=== PATIENT | female | born 1950 | race Caucasian/White ===

== ENCOUNTER 2024-01-08 11:04 | Inpatient (IN) | payer MEDICARE, SELFPAY ==
[2024-01-08] VITALS (41 sets, daily range): BP systolic 105–164; BP diastolic 31–83; PULSE 71–92; TEMP 36.6–37.2; O2SAT 84–97; BMI 45.7; BMI 46.9
--- NOTE | 2024-01-08 11:03 | ECG_ITS ---
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
--- NOTE | 2024-01-08 11:03 | XR_ITS ---
The [address] [address] Patient Name: DAVID GUZMÁN MRN: [id number] date: 1950 Sex: F Assigned Patient Location: ED.MAIN Current Patient Location: ER Accession/Order Number: [id number] Exam Date: 01/08/2024 11:30 Report Date: 01/08/2024 12:02 At the request of: ALCIDES DAVIES Procedure: XR chest 1V EXAMINATION: XR chest 1V HISTORY: sob COMPARISON: XR chest 12/16/2015 FINDINGS: LUNGS: No significant pulmonary parenchymal abnormalities. VASCULATURE: No increased pulmonary vasculature. PLEURA: No pneumothorax, effusion, or pleural thickening. CARDIAC: Cardiomegaly. MEDIASTINUM: No visible mass or adenopathy. BONES: No fracture or visible bone lesion. OTHER: Negative. XR/XR chest 1V IMPRESSION: 1. Cardiomegaly. 2. No acute cardiopulmonary process. Electronically authenticated by: PATTY PANDA Date: 01/08/2024 12:02
--- NOTE | 2024-01-08 11:28 | CT_ITS ---
The [address] [address] Patient Name: DAVID GUZMÁN MRN: [id number] date: 1950 Sex: F Assigned Patient Location: ED.MAIN Current Patient Location: ED.MAIN Accession/Order Number: [id number] Exam Date: 01/08/2024 11:30 Report Date: 01/08/2024 11:57 At the request of: ALCIDES DAVIES Procedure: CT head/brain wo con EXAM: CT head/brain wo con HISTORY: confusion COMPARISON: CT head 03/09/2016. TECHNIQUE: Axial noncontrast CT imaging of the head was performed with coronal and sagittal reformats. This CT exam was performed using one or more of the following dose reduction techniques: Automated exposure control, adjustment of the MA and/or kV according to patient size, or use of iterative reconstruction technique. FINDINGS: Calvarium/skull base: No evidence of acute fracture or destructive lesion. Partial opacification of the left mastoid air cells. Paranasal sinuses: No air fluid levels. Brain: No acute intracranial hemorrhage. No acute large vascular territory infarct. Remote lacunar infarct versus prominent perivascular space involving the inferior right lentiform nucleus stable from 2016. Remote lacunar infarct involving the right caudate body. Remote networking administrator infarcts involving the left cerebellum is stable from prior. Moderate symmetric hypoattenuation is present involving the supratentorial white matter which most commonly relates to sequela small vessel disease. No mass lesion or mass effect. No hydrocephalus. Intracranial atherosclerosis. CT/CT head/brain wo con IMPRESSION: 1. No acute large vascular territory infarct or acute intracranial hemorrhage. If there is clinical concern for recent ischemia recommend MRI brain for further evaluation. 2. Chronic changes described above. Electronically authenticated by: OCTAVIO KEVIN Date: 01/08/2024 11:57
[2024-01-08 11:29] LABS: Basophils Absolute Auto 0.1 10^3/uL (0.0-0.1); Basophils Percent Auto 0.9 % (0.2-2.0); Eosinophils Absolute Auto 0.1 10^3/uL (0.0-0.7); Eosinophils Percent Auto 1.4 % (0.9-7.0); Hematocrit 25.8 % (36.0-48.0); Hemoglobin 7.4 g/dL (12.0-16.0); Immature Granulocytes Abs Auto 0.04 10^3/uL (0.00-0.03); Immature Granulocytes Pct Auto 0.5 % (0.0-0.5); Lymphocytes Absolute Auto 1.3 10^3/uL (1.2-3.8); Lymphocytes Percent Auto 16.5 % (20.5-60.0); Mean Corpuscular HGB Conc 28.7 g/dL (29.9-35.2); Mean Corpuscular Hemoglobin 21.1 pg (26.7-34.0); Mean Corpuscular Volume 73.7 fL (81.0-99.0); Mean Platelet Volume 9.4 fL (9.5-13.5); Monocytes Absolute Auto 0.6 10^3/uL (0.3-0.8); Monocytes Percent Auto 7.7 % (1.7-12.0); Neutrophils Absolute Auto 5.9 10^3/uL (1.4-6.5); Platelet Count 386 10^3/uL (150-450); Red Cell Distribution Width 16.6 % (11.0-15.0)
[2024-01-08 11:46] LABS: Alanine Aminotransferase 24 U/L (14-59); Albumin Globulin Ratio 0.8; Albumin Level 3.1 g/dL (3.4-5.0); Alkaline Phosphatase 170 U/L (46-116); Anion Gap 13.6; Aspartate Amino Transferase 14 U/L (15-37); BUN Creatinine Ratio 10.8; Bilirubin Total 0.7 mg/dL (0.2-1.0); Calcium 8.9 mg/dL (8.5-10.1); Carbon Dioxide 27.4 mmol/L (21.0-32.0); Chloride 104 mmol/L (98-107); Estimated GFR (African America >60 (>=60 mL/min/1.73m^2); Estimated GFR (Non-African Ame >60 (>=60 mL/min/1.73m^2); Globulin 3.7 g/dL; Glucose 222 mg/dL (74-106); Sodium 141 mmol/L (136-145); Total Protein 6.8 g/dL (6.4-8.2)
[2024-01-08 11:47] LABS: INR 1.02; Prothrombin Time 10.8 sec (9.0-11.6)
[2024-01-08 11:53] LABS: Lactate/Lactic Acid 2.1 mmol/L (0.4-2.0); Troponin I High Sensitivity 5.8 pg/mL (4.0-51.3)
--- NOTE | 2024-01-08 11:59 | PC.NURSE ---
PT REFUSING COVID TEST
[2024-01-08 12:05] LABS: Bilirubin Urine NEGATIVE (NEGATIVE); Blood Urine NEGATIVE (NEGATIVE); Clarity Urine CLEAR (CLEAR); Color Urine LT. YELLOW (YELLOW); Glucose Urine UA >=1000 mg/dL (NEGATIVE); Ketones Urine NEGATIVE (NEGATIVE); Leukocyte Esterase Urine NEGATIVE (NEGATIVE); Nitrite Urine NEGATIVE (NEGATIVE); Protein Urine NEGATIVE (NEG/TRACE); Specific Gravity Urine 1.025 (1.005-1.025); pH Urine 5.5 (5.0-9.0)
[2024-01-08 12:07] LABS: Urine Microscopic Indicated NO
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
[2024-01-08 13:40] LABS: Internal Control Within Normal Limits; Occult Blood Positive
--- NOTE | 2024-01-08 14:34 | SWNOTE1 ---
SW had an order for skilled nurse. SW went to speak with pt, but nurse was completing admission assessment. SW to stop back later today or tomorrow morning.
[2024-01-08 14:50] LABS: Lactate/Lactic Acid 1.3 mmol/L (0.4-2.0)
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
--- NOTE | 2024-01-08 16:05 | SWNOTE1 ---
Important Message from Medicare reviewed and discussed with patient's Healthcare POAArmida. Armida verbalized understanding and signed the form. Original given to Armida and copy placed in patient?s chart.
[2024-01-08] MEDS: FUROSEMIDE 40 MG/4 ML VIAL IVP (16:51)
[2024-01-08] MEDS: PANTOPRAZOLE SODIUM 40 MG VIAL IV (18:45)
[2024-01-08 23:15] LABS: Hematocrit 30.5 % (36.0-48.0); Hemoglobin 9.3 g/dL (12.0-16.0)
[2024-01-09] VITALS (10 sets, daily range): BP systolic 142–159; BP diastolic 68–84; PULSE 61–90; TEMP 36.5–36.8; O2SAT 92–98
[2024-01-09] MEDS: PANTOPRAZOLE SODIUM 40 MG VIAL IV (05:16)
[2024-01-09 05:51] LABS: Basophils Absolute Auto 0.1 10^3/uL (0.0-0.1); Basophils Percent Auto 1.1 % (0.2-2.0); Eosinophils Absolute Auto 0.2 10^3/uL (0.0-0.7); Eosinophils Percent Auto 2.1 % (0.9-7.0); Hemoglobin 9.1 g/dL (12.0-16.0); Immature Granulocytes Abs Auto 0.05 10^3/uL (0.00-0.03); Immature Granulocytes Pct Auto 0.7 % (0.0-0.5); Lymphocytes Absolute Auto 1.3 10^3/uL (1.2-3.8); Lymphocytes Percent Auto 17.3 % (20.5-60.0); Mean Corpuscular HGB Conc 30.3 g/dL (29.9-35.2); Mean Corpuscular Hemoglobin 22.4 pg (26.7-34.0); Mean Corpuscular Volume 73.9 fL (81.0-99.0); Mean Platelet Volume 9.5 fL (9.5-13.5); Monocytes Absolute Auto 0.6 10^3/uL (0.3-0.8); Monocytes Percent Auto 7.4 % (1.7-12.0); Neutrophils Absolute Auto 5.4 10^3/uL (1.4-6.5); Neutrophils Percent Auto 71.4 % (43.0-75.0); Platelet Count 335 10^3/uL (150-450); Red Blood Count 4.06 10^6/uL (4.20-5.40); Red Cell Distribution Width 17.5 % (11.0-15.0); White Blood Count 7.6 10^3/uL (4.0-11.0)
[2024-01-09 06:08] LABS: Alanine Aminotransferase 21 U/L (14-59); Albumin Globulin Ratio 0.9; Alkaline Phosphatase 160 U/L (46-116); Anion Gap 14.5; Aspartate Amino Transferase 16 U/L (15-37); BUN Creatinine Ratio 7.7; Bilirubin Total 1.9 mg/dL (0.2-1.0); Calcium 8.6 mg/dL (8.5-10.1); Carbon Dioxide 27.2 mmol/L (21.0-32.0); Chloride 105 mmol/L (98-107); Estimated GFR (African America >60 (>=60 mL/min/1.73m^2); Estimated GFR (Non-African Ame >60 (>=60 mL/min/1.73m^2); Globulin 3.4 g/dL; Glucose 164 mg/dL (74-106); Potassium 3.7 mmol/L (3.5-5.1); Sodium 143 mmol/L (136-145); Total Protein 6.4 g/dL (6.4-8.2)
--- NOTE | 2024-01-09 07:00 | CA_ITS ---
Patient Name: DAVID GUZMÁN MR#: [id number] : 1950 Exam Date: 01/09/2024 Ordering Doctor: SHAIKH Cristina PARKER . ECHOCARDIOGRAM REPORT PROCEDURE: CA ECHO DOPPLER COMPLETE INDICATIONS: SOB/CHF COMPARISON: None. DESCRIPTION: COMPLETE ECHOCARDIOGRAM Real-time transthoracic echocardiography with 2D, M-mode, spectral and color flow Doppler performed. QUALITY: Technical quality was good. LEFT VENTRICLE: Normal chamber size. Mild left ventricular hypertrophy. LV EF: Global left ventricular systolic function is hyperdynamic; visually estimated ejection fraction is 65 to 70%. No significant wall motion abnormalities. DIASTOLIC: Normal diastolic function. ATRIAL SEPTUM: Inadequately seen. LEFT ATRIUM: Mild dilatation. RIGHT ATRIUM: Normal chamber size. RIGHT VENTRICLE: Normal chamber size. Normal right ventricular systolic function. TRICUSPID VALVE: Normal mobility and thickness. Trivial regurgitation. Mild pulmonary hypertension. RVSP 37mmHg MITRAL VALVE: Normal mobility and thickness. No evidence of mitral valve stenosis. Mild mitral annular calcification. Trivial mitral regurgitation. AORTIC VALVE: Normal trileaflet appearance. Thickened aortic valve. Normal leaflet mobility. No evidence of aortic valve stenosis. Trivial aortic regurgitation. AORTIC ROOT: Normal diameter and appearance. The ascending aorta is mildly enlarged and measures 3.9 cm. PULMONIC VALVE: Normal thickness and mobility. No stenosis. Trivial regurgitation. PERICARDIUM: Anterior free space; trivial effusion versus fat pad. IVC: Not well visualized. CONCLUSION: 1. Global left ventricular systolic function is hyperdynamic; visually estimated ejection fraction is 65 to 70% 2. Normal right ventricular size and systolic function 3. Normal diastolic function 4. Mild left ventricular hypertrophy 5. The left atrium is mildly dilated 6. Mildly elevated right ventricular systolic pressure; RVSP 37 mmHg 7. No significant valvular abnormalities 8. The ascending aorta is mildly enlarged 9. Anterior free space; trivial effusion versus fat pad Adult Echocardiography Procedure Report Left Ventricle LVEDD (3.7 - 5.6 cm): 4.37 cm LVESD (2.2 - 4.0 cm): 3.00 cm LVIVS thickness (0.6 - 1.2 cm): 1.2 cm LVPW thickness (0.5 - 1.0 cm): 1.10 cm e': 0.11 m/s E - e': 8.90 LVOT Max Gradient: 3.80 mm[Hg] LVOT Area (cm2): 0.97 m/s Peak Velocity (LVOT): 0.97 m/s Mean Velocity (LVOT): 0.76 m/s LVOT Diameter 2.03 cm Left Ventricular Ejection Fraction: 72.15 % Left Atrium LA Volume Index (2D A2C): 38.17 ml/m2 Left Atrium Systolic Dimension: 2.91 cm Mitral Valve MV E to A Ratio: 0.77 Mitral Valve A-Wave Peak Velocity: 1.25 m/s Mitral Valve E-Wave Peak Velocity: 0.97 m/s Right Ventricle RV Internal Diastolic Dimension: 3.25 cm Aorta AO Root Diam: 2.66 cm Ascending Ao Diam: 3.86 cm Aortic Valve AoV Area (Peak Dionicio): 2.05 cm2, 2.05 cm2 AoV Area (VTI): 2.02 cm2, 2.02 cm2 Peak Velocity(Antegrade Flow): 1.55 m/s Peak Gradient(Antegrade Flow): 9.55 mm[Hg] Mean Velocity(Antegrade Flow): 1.11 m/s Mean Gradient(Antegrade Flow): 5.53 mm[Hg] Velocity Time Integral: 34.22 cm Tricuspid Valve Peak Velocity (Regurgitant Flow): 2.90 m/s, 2.59 m/s, 2.76 m/s Pulmonic Valve Mean Gradient: 3.35 mm[Hg], 3.49 mm[Hg] Mean Velocity: 0.85 m/s, 0.87 m/s Peak Velocity: 1.31 m/s Peak Gradient: 7.06 mm[Hg], 6.65 mm[Hg] Right Atrium Right Atrium Systolic Pressure: 36.95 ml, 36.95 ml Dictated by: Emir Aguilar M.D. on 01/09/2024 at 08:52 Approved by: Emir Aguilar M.D. on 01/09/2024 at 08:56
--- NOTE | 2024-01-09 07:35 | P.GSCN_ITS ---
History of Present Illness Consult details Consult date: 01/08/24 Narrative: 73 yo female presenting with increased SOB and fatigue with daily activities. Denies hematemesis, melanotic or bloody stools. Had c-scope long time ago and was told it was normal. No signifcant hx of colon cancer for self or family. Has personal Hx of breast cancer. Denies any hx of peptic ulcer disease or reflux symptoms. Doing well this am. Desires to go home. Discussed need for investigation of possible GI bleeding source. She understands and questions answered about EGD and colonoscopy. Review of Systems ROS Status of ROS 10 or more systems reviewed and unremark able except as noted in history and below [facility] Medical History (Updated 01/08/24 @ 20:24 by Shaikh Patt MD) H/O traumatic brain injury ?Z87.820 - Personal history of traumatic brain injury (ICD-10) Breast cancer ?C50.919 - Malignant neoplasm of unspecified site of unspecified female breast (ICD-10) Arthritis ?M19.90 - Unspecified osteoarthritis, unspecified site (ICD-10) Urinary tract infection ?N39.0 - Urinary tract infection, site not specified (ICD-10) Extremity edema ?R60.0 - Localized edema (ICD-10) Hypertension ?I10 - Essential (primary) hypertension (ICD-10) Congestive heart failure ?I50.9 - Heart failure, unspecified (ICD-10) Diabetes ?E11.9 - Type 2 diabetes mellitus without complications (ICD-10) Surgical History (Updated 01/08/24 @ 14:42 by Donna Hernandez) History of colonoscopy ?Z98.890 - Other specified postprocedural states (ICD-10) Family History (Updated 01/08/24 @ 14:45 by Donna Hernandez) Grandmother Family history of CHF (congestive heart failure) Family history of COPD (chronic obstructive pulmonary disease) Family history of cancer Family history of diabetes mellitus Family history of hypertension Family history of stroke Grandfather Family history of CHF (congestive heart failure) Family history of myocardial infarction Father Family history of cancer Social History (Updated 01/08/24 @ 14:47 by Donna Hernandez) Within the past year, how often did you have a drink containing alcohol: never Within the past year, how often did you have six or more drinks on one occasion: never Score interpretation: A score less than 3 is consistent with normal alcohol consumption. Smoking status: Former smoker Non-prescribed substance use: denies use Previous occupational history: [employer] Known occupational exposures/hazards: No Highest level of school completed/degree received: high school graduate Are you now , , , , never or living with a partner: In a typical week, how many times do you talk on the telephone with family, friends, or neighbors: 3 or more times per week How often do you get together with friends or relatives: 3 or more times per week How often do you attend gnosticist or anabaptist services: 1-3 times per year Do you belong to any clubs or organizations such as gnosticist groups unions, Inteligistics or athletic groups, or school groups: no Total score: 1 Score interpretation: A score of less than or equal to 1 indicates the most socially isolated. Little interest or pleasure in doing things: several days Feeling down, depressed, or hopeless: several days Feel stressed/tense/nervous/anxious/difficulty sleeping: not at all Do you think of yourself as: straight/heterosexual Gender Identity: female Meds Home Medications and Allergies Home Medications ?Medication ?Instructions ?Recorded ?Confirmed ?Type No Known Home Medications 01/08/24 01/08/24 History Allergies Allergy/AdvReac Type Severity Reaction Status Date / Time No Known Drug Allergies Allergy Verified 01/08/24 11:13 Exam Narrative Exam Narrative: General: awake, alert, no distress Head: normocephalic, atraumatic Neck: supple, no tracheal deviation Heart: RRR Lungs: equal chest rise and fall, non labored breathing Abdomen: soft, non tender, no rebound or guarding Extremities: no lesions, grossly normal Skin: intact, no cyanosis Psychological: no apparent speech or mood disorder, appropriate for encounter Constitutional Vital Signs, click to edit/add: Last Vital Signs Temp 98.1 F 01/09/24 04:00 Pulse 76 01/09/24 05:57 Resp 18 01/09/24 04:00 BP 159/79 H 01/09/24 04:00 Pulse Ox 92 L 01/09/24 04:00 O2 Del Method Room Air 01/09/24 04:00 Results Labs Labs: Abnormal lab results 01/08/24 01/08/24 01/08/24 Range/Units 11:21 11:50 12:40 RBC 3.50 L (4.20-5.40) 10^6/uL Hgb 7.4 L (12.0-16.0) g/dL Hct 25.8 L (36.0-48.0) % MCV 73.7 L (81.0-99.0) fL MCH 21.1 L (26.7-34.0) pg MCHC 28.7 L (29.9-35.2) g/dL RDW 16.6 H (11.0-15.0) % MPV 9.4 L (9.5-13.5) fL Lymph % (Auto) 16.5 L (20.5-60.0) % Abs Immat Gran (auto) 0.04 H (0.00-0.03) 10^3/uL Imm/Tot Granulo (auto) (0.0-0.5) % BUN (7.0-18.0) mg/dL Glucose 222 H (74-106) mg/dL Lactate 2.1 H (0.4-2.0) mmol/L Total Bilirubin (0.2-1.0) mg/dL AST 14 L (15-37) U/L Alkaline Phosphatase 170 H (46-116) U/L Albumin 3.1 L (3.4-5.0) g/dL Urine Glucose (UA) >=1000 A (NEGATIVE) mg/dL Stool Occult Blood Positive A Crossmatch 01/08/24 01/08/24 01/09/24 Range/Units 13:06 23:12 05:35 RBC 4.06 L (4.20-5.40) 10^6/uL Hgb 9.3 L 9.1 L (12.0-16.0) g/dL Hct 30.5 L 30.0 L (36.0-48.0) % MCV 73.9 L (81.0-99.0) fL MCH 22.4 L (26.7-34.0) pg MCHC (29.9-35.2) g/dL RDW 17.5 H (11.0-15.0) % MPV (9.5-13.5) fL Lymph % (Auto) 17.3 L (20.5-60.0) % Abs Immat Gran (auto) 0.05 H (0.00-0.03) 10^3/uL Imm/Tot Granulo (auto) 0.7 H (0.0-0.5) % BUN 6.0 L (7.0-18.0) mg/dL Glucose 164 H (74-106) mg/dL Lactate (0.4-2.0) mmol/L Total Bilirubin 1.9 H (0.2-1.0) mg/dL AST (15-37) U/L Alkaline Phosphatase 160 H (46-116) U/L Albumin 3.0 L (3.4-5.0) g/dL Urine Glucose (UA) (NEGATIVE) mg/dL Stool Occult Blood Crossmatch See Detail Diabetes panel 01/08/24 01/09/24 Range/Units 11:21 05:35 Sodium 141 143 (136-145) mmol/L Potassium 4.0 3.7 (3.5-5.1) mmol/L Chloride 104 105 (98-107) mmol/L Carbon Dioxide 27.4 27.2 (21.0-32.0) mmol/L BUN 9.0 6.0 L (7.0-18.0) mg/dL Creatinine 0.83 0.78 (0.55-1.02) mg/dL Glucose 222 H 164 H (74-106) mg/dL Calcium 8.9 8.6 (8.5-10.1) mg/dL AST 14 L 16 (15-37) U/L ALT 24 21 (14-59) U/L Alkaline Phosphatase 170 H 160 H (46-116) U/L Total Protein 6.8 6.4 (6.4-8.2) g/dL Albumin 3.1 L 3.0 L (3.4-5.0) g/dL Calcium panel 01/08/24 01/09/24 Range/Units 11:21 05:35 Calcium 8.9 8.6 (8.5-10.1) mg/dL Albumin 3.1 L 3.0 L (3.4-5.0) g/dL Pituitary panel 01/08/24 01/09/24 Range/Units 11:21 05:35 Sodium 141 143 (136-145) mmol/L Potassium 4.0 3.7 (3.5-5.1) mmol/L Chloride 104 105 (98-107) mmol/L Carbon Dioxide 27.4 27.2 (21.0-32.0) mmol/L BUN 9.0 6.0 L (7.0-18.0) mg/dL Creatinine 0.83 0.78 (0.55-1.02) mg/dL Glucose 222 H 164 H (74-106) mg/dL Calcium 8.9 8.6 (8.5-10.1) mg/dL Adrenal panel 01/08/24 01/09/24 Range/Units 11:21 05:35 Sodium 141 143 (136-145) mmol/L Potassium 4.0 3.7 (3.5-5.1) mmol/L Chloride 104 105 (98-107) mmol/L Carbon Dioxide 27.4 27.2 (21.0-32.0) mmol/L BUN 9.0 6.0 L (7.0-18.0) mg/dL Creatinine 0.83 0.78 (0.55-1.02) mg/dL Glucose 222 H 164 H (74-106) mg/dL Calcium 8.9 8.6 (8.5-10.1) mg/dL Total Bilirubin 0.7 1.9 H (0.2-1.0) mg/dL AST 14 L 16 (15-37) U/L ALT 24 21 (14-59) U/L Alkaline Phosphatase 170 H 160 H (46-116) U/L Total Protein 6.8 6.4 (6.4-8.2) g/dL Albumin 3.1 L 3.0 L (3.4-5.0) g/dL All other labs normal. Assessment and Plan Assessment and Plan (1) Anemia due to acute blood loss: Assessment and Plan: 1. Cont PPI and carafate. Pt to go home on these medications. Hgb stable today. No bloody/ melanotic BMs or hematemesis per RN. 2. Follow up in clinic to discuss out patient EGD and colonoscopy 3. Encourage patient and caregivers to monitor pt's BMs. Ensure patient is well hydrated and getting adequate fiber to avoid straining (2) Upper gastrointestinal bleed: (3) Acute on chronic diastolic (congestive) heart failure: (4) SOB (shortness of breath): (5) Generalized weakness:
--- NOTE | 2024-01-09 09:58 | CM.NOTE ---
Rounds made with Dr. Beltre. Potential discharge today to home after noon CBC.
--- NOTE | 2024-01-09 10:43 | SWNOTE1 ---
SAMIR spoke to pt and a different aged or disabled care worker in the room. Caregiver and POA, Armida, just left. SAMIR asked pt if she was open to having therapy come in to the home. She stated that would be fine. SAMIR advised pt that she is likely going home today and SW was told to set up trips for later. SAMIR advised caregiver in room and pt that SW will call Armida. SAMIR called and spoke to Armida. She voiced she is fine with HH coming in and at least doing an assessment. SW let her know that nurse would be the first one to come in and do assessment. Armida would like a nurse to come in at least once a week. SW did tell her that SW is not sure how long HH would come in. Armida is aware of how HH works. SAMIR asked what company? She stated no preference, but if [employer] she does not want a specific nurse. SAMIR asked about [employer]. 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 SW to send referral. SAMIR then asked her about trips. She stated yes to use trips and if we could set up between 2-3. SW to call. SW called [facility] and they could not transport until 4-4:30. SAMIR called Armida back. She stated to set it up and if we need to cancel later then SW can cancel it. They may try to get her in to a car since pt will want to come home sooner.
--- NOTE | 2024-01-09 10:48 | SWNOTE1 ---
SW called trips back and set up transport for 4-4:30 and let them know to call SW if they have an earlier time. Referral sent to [address] Referral included face sheet, ED note, H&P, provider notes, case management report, and CRF.
[2024-01-09 11:17] LABS: Hematocrit 32.2 % (36.0-48.0); Hemoglobin 9.6 g/dL (12.0-16.0)
--- NOTE | 2024-01-09 11:37 | P.DS_ITS ---
DS: Providers Provider Date of admission: 01/08/24 13:38 Primary care physician: RAMYA RIVERO Admitting clinician: Shaikh Patt Attending physician on admission: Shaikh Patt Consults: 01/08/24 Consult to Clinical Trials Specialist Routine Reason for consult:: Mcfp 01/08/24 12:49 Consult to General Surgeon Routine Consulting Provider: Oscar Cedeno Reason for consultation: UGI Bleeding 01/08/24 12:50 Physical Therapy Eval and Treat Routine Reason for consultation: Ambulatory dysfunction/weakness Attending physician on discharge: Shaikh Patt Discharging clinician: Shaikh Patt Anticipated date of discharge: 01/09/24 DS: Diagnosis Discharge Diagnosis (1) Anemia due to acute blood loss: (2) Upper gastrointestinal bleed: (3) Acute on chronic diastolic (congestive) heart failure: (4) SOB (shortness of breath): (5) Generalized weakness: DS: Summary Hospital Course Hospital Course: 73 y o female with 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 Her POA told us that previously patient would get SOB if she walked from her bedroom to the kitchen. This progressively got worse over a period of several months where she would have to rest on her way to the kitchen and now for last couple of days, she gets dyspneic on minimal exertion like getting out of bed and sometimes even at rest. Patient is not on any chronic medications. Work up in ED revealed anemia with Hb of 7.3. Her Hb previously in August 2023 was 13. Along with SOB, caregiver reported worsening LE edema. She also mentioned that for past days patient has been feeling weak and tired. There is no prior hx of bleeding and no report of melanotic stools or BRBPR. Patient was admitted as inpatient for symptomatic anemia due acute blood loss, likley upper GIB along with acute on chronic diastolic HF. Upon arrival patient was tachypneic and had labored breathing but at the time of my evaluation, she was calm and comfortable and denied any active complaints to offer. Patient was started on IV protonix. She received 2 units of PRBC. Her Hb improved to 9 and remained stable. No evidence of overt/active bleeding. Stool positive for occult blood. ECHO performed for suspected congestive HF. Patient has normal LVEF, diastolic function. It seems to me that her MORATAYA, LE edema were all related to anemia and she does not have underlying congestive HF. Patient was seen general surgery. They recommended outpatient GI workup. She is scheduled with Dr Cedeno in one week. She recovered sooner than anticipated and is medically stable for discharge. Patient will need oral PPI for suspected gastritis/PUD and was instructed to avoid NSAIDS. I will also order CBC for her to have it checked in one week. We will also start her on PO iron supplementation. Status at Discharge Functional status at discharge: uses cane/walker Overall status at discharge: patient is back to baseline Time Spent with Patient Time attestation: Total time spent providing and/or coordinating discharge services: Time spent: greater than 30 minutes Exam Constitutional Vital Signs, click to edit/add: Last Vital Signs Temp 97.7 F 01/09/24 11:21 Pulse 79 01/09/24 11:21 Resp 18 01/09/24 11:21 BP 142/84 H 01/09/24 11:21 Pulse Ox 98 01/09/24 11:21 O2 Del Method Room Air 01/09/24 11:21 Documenting provider has reviewed patient's vital signs: yes Common normals: no apparent distress and oriented x3 General appearance: cooperative Respiratory Common normals: normal respiratory effort Effort & inspection: able to speak in complete sentences and tachypneic Auscultation: diminished lung sounds Cardio Common normals: regular rate, S1 normal heart sound and S2 normal heart sound Rate: regular rate Heart sounds: S1 normal and S2 normal GI Common normals: Normal to inspection, nondistended, normoactive bowel sounds present, soft to palpation, non-tender and no hepatosplenomegaly Palpation: soft and no hepatosplenomegaly Extremity Common normals: no clubbing, cyanosis or edema Neuro Common normals: oriented x3, moves all extremities and no focal motor deficits Psych Common normals: mental status grossly normal, denies hallucinations, denies homicidal ideation and denies suicidal ideation DS: Data Data Completed and Pending Labs on day of discharge: Labs from last 24 hours 01/09/24 01/09/24 01/08/24 11:04 05:35 23:12 WBC 7.6 RBC 4.06 L Hgb 9.6 L 9.1 L 9.3 L Hct 32.2 L 30.0 L 30.5 L MCV 73.9 L MCH 22.4 L MCHC 30.3 RDW 17.5 H Plt Count 335 MPV 9.5 Neut % (Auto) 71.4 Lymph % (Auto) 17.3 L Crawford % (Auto) 7.4 Eos % (Auto) 2.1 Baso % (Auto) 1.1 Neut # (Auto) 5.4 Lymph # (Auto) 1.3 Crawford # (Auto) 0.6 Eos # (Auto) 0.2 Baso # (Auto) 0.1 Abs Immat Gran (auto) 0.05 H Imm/Tot Granulo (auto) 0.7 H PT INR Sodium 143 Potassium 3.7 Chloride 105 Carbon Dioxide 27.2 Anion Gap 14.5 BUN 6.0 L Creatinine 0.78 Est GFR ( Amer) >60 Est GFR (Non-Af Amer) >60 BUN/Creatinine Ratio 7.7 Glucose 164 H Lactate Calcium 8.6 Total Bilirubin 1.9 H AST 16 ALT 21 Alkaline Phosphatase 160 H Troponin I High Sens NT-Pro-B Natriuret Pep Total Protein 6.4 Albumin 3.0 L Globulin 3.4 Albumin/Globulin Ratio 0.9 Urine Color Urine Clarity Urine pH Ur Specific [place] Urine Protein Urine Glucose (UA) Urine Ketones Urine Occult Blood Urine Nitrite Urine Bilirubin Urine Urobilinogen Ur Leukocyte Esterase Stool Occult Blood Blood Type Antibody Screen Crossmatch 01/08/24 01/08/24 01/08/24 14:19 13:06 12:40 WBC RBC Hgb Hct MCV MCH MCHC RDW Plt Count MPV Neut % (Auto) Lymph % (Auto) [place] % (Auto) Eos % (Auto) Baso % (Auto) Neut # (Auto) Lymph # (Auto) Crawford # (Auto) Eos # (Auto) Baso # (Auto) Abs Immat Gran (auto) Imm/Tot Granulo (auto) PT INR Sodium Potassium Chloride Carbon Dioxide Anion Gap BUN Creatinine Est GFR ( Amer) Est GFR (Non-Af Amer) BUN/Creatinine Ratio Glucose Lactate 1.3 Calcium Total Bilirubin AST ALT Alkaline Phosphatase Troponin I High Sens NT-Pro-B Natriuret Pep Total Protein Albumin Globulin Albumin/Globulin Ratio Urine Color Urine Clarity Urine pH Ur Specific [place] Urine Protein Urine Glucose (UA) Urine Ketones Urine Occult Blood Urine Nitrite Urine Bilirubin Urine Urobilinogen Ur Leukocyte Esterase Stool Occult Blood Positive A Blood Type A Positive Antibody Screen Negative Crossmatch See Detail 01/08/24 01/08/24 11:50 11:21 WBC 8.0 RBC 3.50 L Hgb 7.4 L Hct 25.8 L MCV 73.7 L MCH 21.1 L MCHC 28.7 L RDW 16.6 H Plt Count 386 MPV 9.4 L Neut % (Auto) 73.0 Lymph % (Auto) 16.5 L Crawford % (Auto) 7.7 Eos % (Auto) 1.4 Baso % (Auto) 0.9 Neut # (Auto) 5.9 Lymph # (Auto) 1.3 Crawford # (Auto) 0.6 Eos # (Auto) 0.1 Baso # (Auto) 0.1 Abs Immat Gran (auto) 0.04 H Imm/Tot Granulo (auto) 0.5 PT 10.8 INR 1.02 Sodium 141 Potassium 4.0 Chloride 104 Carbon Dioxide 27.4 Anion Gap 13.6 BUN 9.0 Creatinine 0.83 Est GFR ( Amer) >60 Est GFR (Non-Af Amer) >60 BUN/Creatinine Ratio 10.8 Glucose 222 H Lactate 2.1 H Calcium 8.9 Total Bilirubin 0.7 AST 14 L ALT 24 Alkaline Phosphatase 170 H Troponin I High Sens 5.8 NT-Pro-B Natriuret Pep 134.0 Total Protein 6.8 Albumin 3.1 L Globulin 3.7 Albumin/Globulin Ratio 0.8 Urine Color Lt. yellow Urine Clarity Clear Urine pH 5.5 Ur Specific [place] 1.025 Urine Protein Negative Urine Glucose (UA) >=1000 A Urine Ketones Negative Urine Occult Blood Negative Urine Nitrite Negative Urine Bilirubin Negative Urine Urobilinogen 1.0 Ur Leukocyte Esterase Negative Stool Occult Blood Blood Type Antibody Screen Crossmatch Discharge Plan Discharge Disposition: Home, Self-Care Condition: Fair Discharge Medications: New omeprazole 40 mg capsule,delayed release(DR/EC) 40 mg PO BID Qty: 60 0RF ferrous sulfate 324 mg (65 mg iron) tablet,delayed release (DR/EC) 324 mg PO DAILY Qty: 30 0RF docusate sodium [Colace] 100 mg capsule 100 mg PO DAILY Qty: 30 0RF Activity: increase activity as tolerated Diet: advance to your usual diet Print Language: French Patient Instructions: Heart Failure (ED), Heart Failure (GEN) City Engineer/Water Ski Assembler Instructions: [facility] Phone number is [phone]. They should contact Armida HAZEL, within 48 hours of discharge. Forms: Portal Instructions Follow Up Appointments: Follow up with Dr. Cedeno Saturday01/15/24 @ 2:00pm phone number [phone] [place] [address], [address],[facility] D, [place]. Dr Rivero 2023 at 2:00,
--- NOTE | 2024-01-09 11:50 | SWNOTE1 ---
[address] is able to accept. SW received a call back from [facility] and they reached out to Dr. Rivero's office and he will not follow until pt has her follow up apt with him on January 15. If pt does not show for the appointment then he will not follow for HH and HH can not come in. SAMIR advised Armida HAZEL of this information.
--- NOTE | 2024-01-09 12:15 | SWNOTE1 ---
SAMIR spoke to Armida and let her know about [facility] not being able to see pt until pt goes to follow up. Armida asked if we set up trips for follow up. SAMIR let her that they will have to schedule that. She did ask for a list of follow up apt times and dates. SAMIR let her know that once the final order is in, the nurse will bring in dc paperwork with all that listed.
--- NOTE | 2024-01-10 11:23 | CM.DCFOLLOWU ---
Person spoke with: Caregiver How are you feeling? She is doing much better. Home Health nurse at home at this time How is your pain? No pain Did you understand your discharge instructions? Yes Do you have any questions about your discharge instructions? No Were you given any prescriptions at discharge? Yes Were you able to get your prescriptions filled? Yes Do you understand how to take your medications as ordered? Yes Do you have any questions about your follow up appointment and do you plan to keep your follow up appointment? Appointments scheduled and will go to both appt Is there anything else that you would like to discuss? Pt does have order for repeat CBC and will have done prior to f/u appt Questions/Comments/Concerns/Other:
== END 2024-01-09 13:20 | disposition home health service (06) | DRG 811 ==
LOC: ER 13:45 → MS 13:47
PROVIDERS: Admitting Provider Internal Medicine; Emergency Provider Emergency Medicine; PCP Family Medicine; Visit Provider Internal Medicine
DX: D62 Acute posthemorrhagic anemia (principal); I50.33 Acute on chronic diastolic (congestive) heart failure; K92.2 Gastrointestinal hemorrhage, unspecified; R53.1 Weakness; I11.0 Hypertensive heart disease with heart failure; M19.90 Unspecified osteoarthritis, unspecified site; E11.9 Type 2 diabetes mellitus without complications; Z98.890 Other specified postprocedural states; Z87.820 Personal history of traumatic brain injury; Z87.891 Personal history of nicotine dependence; Z85.3 Personal history of malignant neoplasm of breast; Z87.440 Personal history of urinary (tract) infections
CPT/HCPCS: 36415; 36430; 70450; 71045; 80053; 81003; 83605; 83880; 84484; 85014; 85018; 85025; 85610; 86850; 86900; 86901; 86923; 87040; 87811; 93005; 93306; 94761; 97161; 97530; 99285; G0328; J1940; P9016

== ENCOUNTER 2024-01-22 12:46 | Outpatient (OUT) | payer MEDICARE, SELFPAY | END 2024-01-22 12:47 | disposition home or self-care (01) | LOC: PST 12:52 | PROVIDERS: PCP Family Medicine; Visit Provider Surgery | DX: Z01.818 Encounter for other preprocedural examination (principal); K92.2 Gastrointestinal hemorrhage, unspecified; D64.9 Anemia, unspecified ==

== ENCOUNTER 2024-01-28 09:40 | Day surgery (SDC) | payer MEDICARE, SELFPAY ==
[2024-01-28 09:56] VITALS: BP 172/102; PULSE 92; O2SAT 94; BMI 45.8
[2024-01-28] MEDS: 0.9 % SODIUM CHLORIDE 500 ML 50 ML IV (10:02)
--- OUTSIDE RECORDS SUMMARY | 2024-01-28 10:02 | XMS_ITS | CCD ---
Author Organization [facility] ion Partnership [facility] Care Team Providers Care [employer] Technician Name Role Phone Unavailable Primary Care Provider UnavailGIDEON Ackerman Primary Care Unavailable THERESA GARCIAS Attending Unavailable THERESA GARCIAS Attending Unavailable THERESA GARCIAS Referring Unavailable GIDEON RIVERO Primary Care Unavailable SHAIKH PARKER Referring Unavailable GIDEON RIVERO Primary Care Unavailable Gideon Rivero MD Primary Care Provider Gideon Rivero DO Primary Care Provider OSCAR CEDENO Attending Unavailable GIDEON RIVERO Attending Unavailable GIDEON RIVERO Referring Unavailable GIDEON RIVERO Primary Care Unavailable Allergies Allergy Classification Reported Allergen(s) Allergy Type Date of Onset Reaction(s) Facility (5 sources) SITagliptin; Translations: [SITAGLIPTIN PHOSPHATE] Drug Allergy 10-27-2015 Dizziness [facility] Repository Medications Current Medications Medication Drug Class(es) Dates Sig (Normalized) Sig (Original) atorvastatin 10 mg oral tablet (3 sources) HMG-CoA Reductase Inhibitor Start: 01-16-2024 take 1 tablet by mouth in the morning atorvastatin (LIPITOR) 10 mg tablet Indications: Type 2 diabetes mellitus without complication, without long-term current use of insulin ([facility]) Take 1 tablet (10 mg total) by mouth in the morning. 30 tablet 01/16/2024 Active bisacodyl 5 mg delayed release oral tablet (2 sources) Stimulant Laxative Start: 01-15-2024 End: 01-15-2024 take 1 tablet by mouth once bisacodyl (Dulcolax) 5 MG EC tablet Indications: Occult blood in stools Take 1 tablet (5 mg) by mouth 1 time for 1 dose Do not crush, chew, or split. Take as detailed on clinic hand out for colonoscopy prep 4 tablet 01/15/2024 01/15/2024 Active dapagliflozin 10 mg oral tablet (2 sources) Sodium-Glucose Cotransporter 2 Inhibitor Start: 01-20-2024 take 1 tablet by mouth in the morning dapagliflozin propanediol (FARXIGA) 10 mg tablet Take 1 tablet (10 mg total) by mouth in the morning. 30 tablet 5 01/20/2024 Active docusate sodium 100 mg oral capsule (5 sources) docusate sodium (COLACE) 100 mg capsule Take 1 capsule (100 mg total) by mouth. Active ferrous sulfate 325 mg oral tablet (5 sources) take 1 tablet by mouth in the morning ferrous sulfate 325 (65 FE) mg tablet Take 1 tablet (325 mg total) by mouth in the morning. Active omeprazole 20 mg delayed release oral capsule (5 sources) Proton Pump Inhibitor take 1 capsule by mouth in the morning omeprazole (PriLOSEC) 20 mg capsule Take 1 capsule (20 mg total) by mouth in the morning. Active polyethylene glycol 3350 12486 mg powder for oral solution (2 sources) Osmotic Laxative Start: 01-15-2024 End: 01-15-2024 take 17 g by mouth once polyethylene glycol, PEG, 3350 (Glycolax) 17 GM/SCOOP powder Indications: Colonoscopy Take 238 g by mouth 1 (one) time for 1 dose Take as detailed from clinic hand out for colonoscopy prep 238 g 01/15/2024 01/15/2024 Active Completed/Discontinued Medications Medication Drug Class(es) Dates Sig (Normalized) Sig (Original) cholecalciferol 0.025 mg oral capsule (1 source) Vitamin D Start: 02-05-2022 End: 01-16-2024 take 1 capsule by mouth in the morning cholecalciferol, vitamin D3, (VITAMIN D3) 25 mcg (1,000 unit) capsule Take 1 capsule (1,000 Units total) by mouth in the morning. 02/05/2022 01/16/2024 Discontinued (Therapy completed) cholecalciferol, vitamin D3, (VITAMIN D3 ORAL) (1 source) Start: 01-05-2016 End: 01-16-2024 take 3000 [IU] by mouth once daily cholecalciferol, vitamin D3, (VITAMIN D3 ORAL) Take 3,000 Units by mouth once daily. 01/05/2016 01/16/2024 Discontinued (Therapy completed) empagliflozin 10 mg oral tablet (3 sources) Sodium-Glucose Cotransporter 2 Inhibitor Start: 01-16-2024 End: 01-20-2024 take 1 tablet by mouth every twenty-four hours empagliflozin (JARDIANCE) 10 mg tablet tablet Take 1 tablet (10 mg total) by mouth daily. 30 tablet 5 01/16/2024 01/20/2024 Discontinued (Cost of medication) End: 01-16-2024 take 5 mg by mouth every twenty-four hours empagliflozin (JARDIANCE) 10 mg tablet tablet 5 mg daily. 01/16/2024 Discontinued (Reorder) hydroCHLOROthiazide 25 mg oral tablet (1 source) Thiazide Diuretic End: 01-16-2024 take 1 tablet by mouth once daily hydroCHLOROthiazide (HYDRODIURIL) 25 mg tablet hydrochlorothiazide 25 mg tablet TAKE 1 TABLET BY MOUTH EVERY DAY 01/16/2024 Discontinued (Patient Stopped On Own) lisinopril 20 mg oral tablet (3 sources) Angiotensin Converting Enzyme Inhibitor End: 01-16-2024 take 1 tablet by mouth in the morning lisinopriL (PRINIVIL,ZESTRIL) 20 mg tablet Take 1 tablet (20 mg total) by mouth in the morning. 01/16/2024 Discontinued (Patient Stopped On Own) take 1 tablet by mouth once dion y lisinopril 10 MG tablet Take 10 mg by mouth Daily Active magnesium oxide 400 mg oral tablet (1 source) End: 01-16-2024 take 1 tablet by mouth in the morning, then take 1 tablet by mouth at bedtime magnesium oxide (MAGOX) 400 mg tablet Take 1 tablet (400 mg total) by mouth in the morning and 1 tablet (400 mg total) before bedtime. 01/16/2024 Discontinued (Therapy completed) metFORMIN hydrochloride 500 mg oral tablet (1 source) Biguanide End: 01-16-2024 take 1 tablet by mouth once daily metFORMIN (GLUCOPHAGE) 500 mg tablet metformin 500 mg tablet TAKE 1 TABLET BY MOUTH EVERY DAY 01/16/2024 Discontinued (Therapy completed) potassium chloride 10 meq extended release oral tablet (1 source) End: 01-16-2024 potassium chloride (K-TAB,KLOR-CON) 10 MEQ CR tablet Take 1 tablet (10 mEq total) by mouth Daily at 0300. 01/16/2024 Discontinued (Therapy completed) simvastatin 20 mg oral tablet (1 source) HMG-CoA Reductase Inhibitor End: 01-16-2024 take 1 tablet by mouth once daily simvastatin (ZOCOR) 20 mg tablet Take 20 mg by mouth nightly. 01/16/2024 Discontinued (Therapy completed) triamcinolone acetonide 1 mg/ml topical cream (1 source) Corticosteroid End: 01-16-2024 triamcinolone (KENALOG) 0.1 % cream Apply 1 Application topically in the morning and 1 Application before bedtime. 01/16/2024 Discontinued vitamin E, dl,tocopheryl acet, (VITAMIN E, DL, ACETATE, ORAL) (1 source) End: 01-16-2024 take 100 [IU] by mouth once daily vitamin E, dl,tocopheryl acet, (VITAMIN E, DL, ACETATE, ORAL) Take 100 Unit by mouth daily. 01/16/2024 Discontinued (Therapy completed) warfarin sodium 5 mg oral tablet (2 sources) Vitamin K Antagonist Start: 01-20-2016 End: 01-16-2024 warfarin sodium (WARFARIN ORAL) Take 5 mg by mouth daily. WARFARIN 5 MG ORAL SATURDAY AND FRIDAYS, 7.5 MG REST OF THE WEEK. 01/20/2016 01/16/2024 Discontinued (Therapy completed) Start: 01-12-2016 End: 01-16-2024 take 7.5 mg by mouth once daily warfarin (COUMADIN) 5 mg tablet Take 7.5 mg by mouth daily. 01/12/2016 01/16/2024 Discontinued (Therapy completed) Problems Active Problems Problem Classification Problem Date Documented Da te Episodic/Chronic Acute posthemorrhagic anemia (1 source) Acute posthemorrhagic anemia; Translations: [Acute posthemorrhagic anemia] Onset: 4 Episodic Cancer of breast (3 sources) Malignant tumor of breast ; Translations: [Malignant neoplasm of unspecified site of unspecified female breast] Onset: 9 11-16-2021 Chronic Cancer of colon (5 sources) Primary malignant neoplasm of colon; Translations: [Malignant neoplasm of colon, unspecified] Onset: 4 01-16-2024 Chronic Deficiency and other anemia (4 sources) Anemia; Translations: [Anemia, unspecified] Onset: 4 01-16-2024 Episodic Deficiency and other anemia (1 source) Anemia, unspecified; Translations: [Anemia, unspecified] Onset: 4 Episodic Deficiency and other anemia (1 source) Deficiency and other anemia Onset: 4 Diabetes mellitus without complication (5 sources) Type 2 diabetes mellitus without complication; Translations: [Type 2 diabetes mellitus without complications] Onset: 2 01-16-2024 Chronic Disorders of lipid metabolism (3 sources) Hyperlipidemia; Translations: [Hyperlipidemia, unspecified] Onset: 2 11-16-2021 Chronic E Codes: Fall (1 source) Fall Onset: 4 Esophageal disorders (3 sources) Gastroesophageal reflux disease; Translations: [Gastro-esophageal reflux disease without esophagitis] Onset: 2 11-16-2021 Chronic Essential hypertension (3 sources) Essential hypertension; Translations: [Essential (primary) hypertension] Onset: 2 11-16-2021 Chronic Gastrointestinal hemorrhage (5 sources) Gastrointestinal hemorrhage; Translations: [Gastrointestinal hemorrhage, unspecified] Onset: 4 01-16-2024 Episodic Nutritional deficiencies (3 sources) Vitamin D deficiency; Translations: [Vitamin D deficiency, unspecified] Onset: 8 11-16-2021 Chronic Osteoarthritis (3 sources) Osteoarthritis; Translations: [Unspecified osteoarthritis, unspecified site] Onset: 2 11-16-2021 Chronic Other and ill-defined heart disease (1 source) Diastolic dysfunction; Translations: [Other ill-defined heart diseases] 01-16-2024 Chronic Other diseases of veins and lymphatics (3 sources) Lymphedema; Translations: [Lymphedema, not elsewhere classified] Onset: 2 11-16-2021 Chronic Other gastrointestinal disorders (2 sources) Occult blood in stools; Translations: [Other fecal abnormalities] 01-15-2024 Episodic Other nutritional; endocrine; and metabolic disorders (4 sources) Morbid obesity; Translations: [Morbid (severe) obesity due to excess calories] Onset: 2 01-16-2024 Chronic Other nutritional; endocrine; and metabolic disorders (1 source) Morbid (severe) obesity due to excess calories; Translations: [Morbid (severe) obesity due to excess calories] Onset: 4 Chronic Other screening for suspected conditions (not mental disorders or infectious disease) (2 sources) Patient encounter status; Translations: [Encounter for screening mammogram for malignant neoplasm of breast] Onset: 4 01-16-2024 Episodic Phlebitis; thrombophlebitis and thromboembolism (3 sources) Chronic deep venous thrombosis of lower extremity; Translations: [Chronic embolism and thrombosis of unspecified deep veins of unspecified lower extremity] Onset: 7 Resolved: 4 01-16-2024 Chronic Residual codes; unclassified (1 source) Edema of foot; Translations: [Localized edema] 01-16-2024 Episodic Residual codes; unclassified (1 source) Localized edema; Translations: [Localized edema] Onset: Episodic Unclassified (1 source) EMS Onset: Past or Other Problems Problem Classification Problem Date Documented Da te Episodic/Chronic Acute and unspecified renal failure (3 sources) Acute nontraumatic kidney injury; Translations: [Acute kidney failure, unspecified] Onset: 12-30-2015 11-16-2021 Episodic Diabetes mellitus without complication (1 source) Hyperglycemia, unspecified; Translations: [Hyperglycemia, unspecified] Onset: 09-23-2023 Episodic Fluid and electrolyte disorders (3 sources) Hyponatremia; Translations: [Hypo-osmolality and hyponatremia] Onset: 03-10-2018 11-16-2021 Episodic Mood disorders (3 sources) Mood disorders Onset: 01-16-2024 01-16-2024 Open wounds of extremities (3 sources) Open wound of lower limb; Translations: [Unspecified open wound, unspecified knee, initial encounter] Onset: 02-23-2016 11-16-2021 Episodic Other bone disease and musculoskeletal deformities (3 sources) Osteopenia; Translations: [Other specified disorders of bone density and structure, unspecified site] Onset: 11-16-2021 11-16-2021 Episodic Other diseases of kidney and ureters (3 sources) Abnormal renal function; Translations: [Disorder of kidney and ureter, unspecified] Onset: 08-20-2016 11-16-2021 Episodic Other injuries and conditions due to external causes (1 source) History of falling; Translations: [History of falling] Onset: 09-23-2023 Episodic Other nervous system disorders (3 sources) Finding related to ability to move; Translations: [Other abnormalities of gait and mobility] Onset: 02-02-2022 04-16-2023 Episodic Pulmonary heart disease (3 sources) Pulmonary embolism; Translations: [Other pulmonary embolism without acute cor pulmonale] Onset: 11-16-2021 Resolved: 01-16-2024 01-16-2024 Episodic Residual codes; unclassified (1 source) Altered mental status, unspecified; Translations: [Altered mental status, unspecified] Onset: 09-23-2023 Episodic Urinary tract infections (1 source) Acute cystitis with hematuria; Translations: [Acute cystitis with hematuria] Onset: 09-23-2023 Episodic Results Test Name Value Interpretation Reference Range Facility CBC AND AUTO DIFFon 01-13-20 ABSOLUTE BASOPHIL 0.1 X10E9/L Normal 0.0-0.2 [facility] Comment on above: Performed By: #### C BCA, PINR, 32028-1, BMP, 92720-8, LIVR, 94747-3, 80187-9, THYR #### [facility] ([id number]) [address] [place] [address] 83073 ABSOLUTE NEUTROPHIL 5.2 X10E9/L Normal 1.5-6.[address] [facility] Comment on above: Performed By: #### C BCA, PINR, 92232-1, BMP, 40418-1, LIVR, 24495-8, 01393-7, THYR #### [facility] ([id number]) [address] [place] [address] 61373 Basophils/100 WBC (Bld) 1.0 % Normal [facility] Comment on above: Performed By: #### C BCA, PINR, 77188-1, BMP, 99928-9, LIVR, 52772-0, 21256-2, THYR #### [facility] ([id number]) [address] [place] [address] 05981 Eosinophils (Bld) [#/Vol] 0.2 10*3/uL Normal 0.0-0.4 [facility] Comment on above: Performed By: #### C BCA, PINR, 78493-3, BMP, 09704-9, LIVR, 62169-1, 79769-2, THYR #### [facility] ([id number]) [address] [place] [address] 43128 Eosinophils/100 WBC (Bld) 2.9 % Normal [facility] Comment on above: Performed By: #### C BCA, PINR, 22317-6, BMP, 48044-7, LIVR, 33666-8, 75777-0, THYR #### [facility] ([id number]) [address] [place] [address] 93145 Erythrocyte distribution width (RBC) [Ratio] 20.8 % High 11.5-15.0 [facility] Comment on above: Performed By: #### C BCA, PINR, 64741-2, BMP, 82662-8, LIVR, 25450-9, 75895-4, THYR #### [facility] ([id number]) [address] [place] [address] 63213 Hematocrit (Bld) [Volume fraction] 30.9 % Low 35-47 [facility] Comment on above: Performed By: #### C BCA, PINR, 76129-4, BMP, 50509-1, LIVR, 11322-5, 23285-3, THYR #### [facility] ([id number]) [address] [place] [address] 80415 Hemoglobin (Bld) [Mass/Vol] 9.3 g/dL Low 11.7-15.5 [facility] Comment on above: Performed By: #### C BCA, PINR, 41270-9, BMP, 37683-2, LIVR, 04833-7, 77872-1, THYR #### [facility] ([id number]) [address] [place] [address] 88382 Lymphocytes (Bld) [#/Vol] 1.2 10*3/uL Normal 1.0-3.5 [facility] Comment on above: Performed By: #### C BCA, PINR, 39808-5, BMP, 70025-8, LIVR, 01402-7, 02610-9, THYR #### [facility] ([id number]) [address] [place] [address] 06984 Lymphocytes/100 WBC (Bld) 16.1 % Normal [facility] Comment on above: Performed By: #### C BCA, PINR, 37095-8, BMP, 63926-2, LIVR, 05811-8, 76843-8, THYR #### [facility] ([id number]) [address] [place] [address] 67183 MCH (RBC) [Entitic mass] 21.9 pg Low 27-34 [facility] Comment on above: Performed By: #### C BCA, PINR, 91357-4, BMP, 97459-9, LIVR, 88031-7, 28470-6, THYR #### [facility] ([id number]) [address] [place] [address] [place] [address] MCHC (RBC) [Mass/Vol] 30.0 g/dL Low 32-36 [facility] Comment on above: Performed By: #### C BCA, PINR, 47872-8, BMP, 93545-0, LIVR, 09808-2, 00471-1, THYR #### [facility] ([id number]) [address] [place] [address] [place] [address] MCV (RBC) [Entitic vol] 73 fL Low 80-100 [facility] Comment on above: Performed By: #### C BCA, PINR, 66296-3, BMP, 94999-8, LIVR, 59394-4, 79748-0, THYR #### [facility] ([id number]) [address] [place] [address] 40402 Monocytes (Bld) [#/Vol] 0.5 10*3/uL Normal 0-0.9 [facility] Comment on above: Performed By: #### C BCA, PINR, 20680-5, BMP, 86431-8, LIVR, 40846-7, 06198-0, THYR #### [facility] ([id number]) [address] [place] [address] 46240 Monocytes/100 WBC (Bld) 7.2 % Normal [facility] Comment on above: Performed By: #### C BCA, PINR, 69150-9, BMP, 44528-1, LIVR, 09343-0, 90651-2, THYR #### [facility] ([id number]) [address] [place] [address] 88121 Neutrophils/100 WBC (Bld) 72.8 % Normal [facility] Comment on above: Performed By: #### C BCA, PINR, 67735-5, BMP, 40554-4, LIVR, 39166-8, 94054-0, THYR #### [facility] ([id number]) [address] [place] [address] 47962 Platelet mean volume (Bld) [Entitic vol] 7.8 fL Normal 7-12 [facility] Comment on above: Performed By: #### C BCA, PINR, 12619-5, BMP, 34303-9, LIVR, 19532-2, 50224-4, THYR #### [facility] ([id number]) [address] [place] [address] 30137 Platelets (Bld) [#/Vol] 347 10*3/uL Normal 150-450 [facility] Comment on above: Performed By: #### C BCA, PINR, 37962-0, BMP, 94274-8, LIVR, 98598-8, 08219-3, THYR #### [facility] ([id number]) [address] [place] [address] 74848 RBC COUNT 4.23 X10E12/L Normal 3.80-5.20 [facility] Comment on above: Performed By: #### C BCA, PINR, 15455-2, BMP, 77010-4, LIVR, 70702-1, 37041-8, THYR #### [facility] ([id number]) [address] [place] [address] 37244 WBC (Bld) [#/Vol] 7.2 10*3/uL Normal 4.0-11.0 [facility] Comment on above: Performed By: #### C BCA, PINR, 65524-5, BMP, 43134-4, LIVR, 68964-6, 74624-3, THYR #### [facility] ([id number]) [address] [place] [address] 25240 CBC W Auto Differential pane l (Bld)on 01-13-2024 ABSOLUTE BASOPHIL 0.1 [facility] Comment on above: PERFORMED AT [address] [address] Basophils/100 WBC (Bld) 1 % [facility] Eosinophils (Bld) [#/Vol] 0.2 10*3/uL [facility] Eosinophils/100 WBC (Bld) 2.9 % [facility] Erythrocyte distribution width (RBC) [Ratio] 20.8 % High 11.5 - 15.0 % [facility] Hematocrit (Bld) [Volume fraction] 30.9 % Low 35 - 47 % [facility] ([facility]ld) [Mass/Vol] 9.3 g/dL Low 11.7 - 15.5 g/dL [facility] Interpretation and review of laboratory results Abnormal [facility] Lymphocytes (Bld) [#/Vol] 1.2 10*3/uL [facility] Lymphocytes/100 WBC (Bld) 16.1 % [facility] MCH (RBC) [Entitic mass] 21.9 pg Low 27 - 34 pg [facility] MCHC (RBC) [Mass/Vol] 30 g/dL Low 32 - 36 g/dL [facility] MCV (RBC) [Entitic vol] 73 fL Low 80 - 100 fL [facility] Monocytes (Bld) [#/Vol] 0.5 10*3/uL [facility] Monocytes/100 WBC (Bld) 7.2 % [facility] Neutrophils (Bld) [#/Vol] 5.2 10*3/uL [facility] Neutrophils/100 WBC (Bld) 72.8 % [facility] Platelet mean volume (Bld) [Entitic vol] 7.8 fL 7 - 12 fL [facility] Plate[facility] (Bld) [#/Vol] 347 10*3/uL [facility] RBC (Bld) [#/Vol] 4.23 10*6/uL [facility] WBC corrected for nucl RBC Auto (Bld) [#/Vol] 7.2 [facility] AMMONIAon 09-23-2023 Ammonia (P) [Moles/Vol] 17 umol/L Normal 11-35 [facility] Comment on above: Performed By: #### C BCA, PINR, 30561-9, BMP, 70698-9, LIVR, 62344-0, 29158-4, THYR #### [facility] ([id number]) [address] [place] [address] 67109 BASIC METABOLIC PANLon 09-22 Anion gap [Moles/Vol] 6 mmol/L Normal 5-15 [facility] Comment on above: Performed By: #### C BCA, PINR, 45384-4, BMP, 30231-0, LIVR, 95379-9, 07449-2, THYR #### [facility] ([id number]) [address] [place] [address] 48775 Calcium [Mass/Vol] 8.8 mg/dL Normal 8.5-10.5 [facility] Comment on above: Performed By: #### C BCA, PINR, 42145-5, BMP, 20922-6, LIVR, 99164-3, 17547-0, THYR #### [facility] ([id number]) [address] [place] [address] 55636 Chloride [Moles/Vol] 104 mmol/L Normal 98-[address] [facility] Comment on above: Performed By: #### C BCA, PINR, 74506-5, BMP, 60511-0, LIVR, 96247-1, 37283-5, THYR #### [facility] ([id number]) [address] [place] [address] 16047 CO2 [Moles/Vol] 24 mmol/L Normal 22-32 [facility] Comment on above: Performed By: #### C BCA, PINR, 99775-0, BMP, 38888-0, LIVR, 36757-4, 73884-6, THYR #### [facility] ([id number]) [address] [place] [address] 58949 Creatinine [Mass/Vol] 0.74 mg/dL Normal 0.40-1.00 [facility] Comment on above: Result Comment: METH OD TRACEABLE TO IDMS STANDARD Performed By: #### C BCA, PINR, 38142-4, BMP, 20658-0, LIVR, 02862-3, 32275-4, THYR #### [facility] ([id number]) [address] [place] [address] 43084 GFR/1.73 sq M.predicted among non-blacks MDRD (S/P/Bld) [Vol rate/Area] 86 mL/min/{1.73_m2} Normal >59 [facility] Comment on above: Result Comment: Reported eGFR is based on the CKD-EPI 2020 equation that does not use a race coefficient. Performed By: #### C BCA, PINR, 50900-8, BMP, 19205-9, LIVR, 01662-0, 38500-4, THYR #### [facility] ([id number]) [address] [place] [address] 76555 Glucose [Mass/Vol] 215 mg/dL High 65-99 [facility] Comment on above: Performed By: #### C BCA, PINR, 08043-0, BMP, 59555-3, LIVR, 12909-3, 68579-2, THYR #### [facility] ([id number]) [address] [place] [address] 40957 Potassium [Moles/Vol] 4.6 mmol/L Normal 3.5-5.0 [facility] Comment on above: Performed By: #### C BCA, PINR, 96086-8, BMP, 27135-8, LIVR, 96275-6, 90159-8, THYR #### [facility] ([id number]) [address] [place] [address] 41344 Sodium [Moles/Vol] 134 mmol/L Normal 134-146 [facility] Comment on above: Performed By: #### C BCA, PINR, 63138-0, BMP, 57774-4, LIVR, 39162-6, 56194-2, THYR #### [facility] ([id number]) [address] [place] [address] 70428 Urea nitrogen [Mass/Vol] 15 mg/dL Normal 5-27 [facility] Comment on above: Performed By: #### C BCA, PINR, 63770-9, BMP, 86219-9, LIVR, 63487-5, 62228-8, THYR #### [facility] ([id number]) [address] [place] [address] 86303 CBC AND AUTO DIFFon 09-23-19 24 ABSOLUTE BASOPHIL 0.1 X10E9/L Normal 0.0-0.2 [facility] Comment on above: Performed By: #### C BCA, PINR, 38067-0, BMP, 67050-7, LIVR, 01466-3, 46513-3, THYR #### [facility] ([id number]) [address] [place] [address] 70065 ABSOLUTE NEUTROPHIL 11.1 X10E9/L High 1.5-6.6 [facility] Comment on above: Performed By: #### C BCA, PINR, 74206-9, BMP, 10804-0, LIVR, 73047-8, 04593-5, THYR #### [facility] ([id number]) [address] [place] [address] 05982 Basophils/100 WBC (Bld) 0.4 % Normal [facility] Comment on above: Performed By: #### C BCA, PINR, 89616-9, BMP, 87103-7, LIVR, 25950-3, 95471-9, THYR #### [facility] ([id number]) [address] [place] [address] 50507 Eosinophils (Bld) [#/Vol] 0.0 10*3/uL Normal 0.0-0.4 [facility] Comment on above: Performed By: #### C BCA, PINR, 95736-1, BMP, 86545-9, LIVR, 00634-1, 05886-3, THYR #### [facility] ([id number]) [address] [place] [address] 27842 Eosinophils/100 WBC (Bld) 0.1 % Normal [facility] Comment on above: Performed By: #### C BCA, PINR, 53116-1, BMP, 80086-6, LIVR, 10200-4, 41927-8, THYR #### [facility] ([id number]) [address] [place] [address] 83699 Erythrocyte distribution width (RBC) [Ratio] 14.5 % Normal 11.5-15.0 [facility] Comment on above: Performed By: #### C BCA, PINR, 42037-6, BMP, 73831-0, LIVR, 85322-2, 92308-6, THYR #### [facility] ([id number]) [address] [place] [address] 76564 Hematocrit (Bld) [Volume fraction] 37.9 % Normal 35-47 [facility] Comment on above: Performed By: #### C BCA, PINR, 57692-5, BMP, 76536-2, LIVR, 93291-6, 45766-9, THYR #### [facility] ([id number]) [address] [place] [address] 71601 Hemoglobin (Bld) [Mass/Vol] 12.6 g/dL Normal 11.7-15.5 [facility] Comment on above: Performed By: #### C BCA, PINR, 09233-9, BMP, 13378-3, LIVR, 02037-2, 42771-0, THYR #### [facility] ([id number]) [address] [place] [address] 62789 Lymphocytes (Bld) [#/Vol] 1.0 10*3/uL Normal 1.0-3.5 [facility] Comment on above: Performed By: #### C BCA, PINR, 89488-3, BMP, 04280-6, LIVR, 33086-3, 25541-0, THYR #### [facility] ([id number]) [address] [place] [address] 75099 Lymphocytes/100 WBC (Bld) 7.8 % Normal [facility] Comment on above: Performed By: #### C BCA, PINR, 07727-4, BMP, 14146-1, LIVR, 56009-7, 06982-4, THYR #### [facility] ([id number]) [address] [place] [address] 60849 MCH (RBC) [Entitic mass] 27.0 pg Normal 27-34 [facility] Comment on above: Performed By: #### C BCA, PINR, 90091-4, BMP, 49758-0, LIVR, 85119-1, 27915-0, THYR #### [facility] ([id number]) [address] [place] [address] 98556 MCHC (RBC) [Mass/Vol] 33.3 g/dL Normal 32-36 [facility] Comment on above: Performed By: #### C BCA, PINR, 98794-3, BMP, 72674-3, LIVR, 27010-1, 02094-8, THYR #### [facility] ([id number]) [address] [place] [address] 99728 MCV (RBC) [Entitic vol] 81 fL Normal 80-100 [facility] Comment on above: Performed By: #### C BCA, PINR, 90411-3, BMP, 83541-0, LIVR, 82927-9, 33930-6, THYR #### [facility] ([id number]) [address] [place] [address] 61822 Monocytes (Bld) [#/Vol] 0.5 10*3/uL Normal 0-0.9 [facility] Comment on above: Performed By: #### C BCA, PINR, 63896-2, BMP, 63723-5, LIVR, 99757-1, 83005-6, THYR #### [facility] ([id number]) [address] [place] [address] 12690 Monocytes/100 WBC (Bld) 3.8 % Normal [facility] Comment on above: Performed By: #### C BCA, PINR, 20572-6, BMP, 81156-1, LIVR, 62674-3, 63539-9, THYR #### [facility] ([id number]) [address] [place] [address] 86082 Neutrophils/100 WBC (Bld) 87.9 % Normal [facility] Comment on above: Performed By: #### C BCA, PINR, 29796-4, BMP, 70837-1, LIVR, 44530-7, 69110-5, THYR #### [facility] ([id number]) [address] [place] [address] 21184 Platelet mean volume (Bld) [Entitic vol] 7.6 fL Normal 7-12 [facility] Comment on above: Performed By: #### C BCA, PINR, 62450-1, BMP, 04193-9, LIVR, 32062-3, 64472-6, THYR #### [facility] ([id number]) [address] [place] [address] 98807 Platelets (Bld) [#/Vol] 304 10*3/uL Normal 150-450 [facility] Comment on above: Performed By: #### C BCA, PINR, 31785-5, BMP, 08851-6, LIVR, 61254-5, 56888-2, THYR #### [facility] ([id number]) [address] [place] [address] 20437 RBC COUNT 4.68 X10E12/L Normal 3.80-5.20 [facility] Comment on above: Performed By: #### C BCA, PINR, 53175-3, BMP, 96705-6, LIVR, 90188-7, 61701-2, THYR #### [facility] ([id number]) [address] [place] [address] 14840 WBC (Bld) [#/Vol] 12.7 10*3/uL High 4.0-11.0 [facility] Comment on above: Performed By: #### C BCA, PINR, 96601-3, BMP, 57663-0, LIVR, 83169-1, 58839-1, THYR #### [facility] ([id number]) [address] [place] [address] BRAIN WO CONTon 4 CT BRAIN WO CONT CT BRAIN WO CONT CT BRAIN WO CONT: 09/23/2023 5:17 PM Clinical: Injury. Weakness. EXAM: NONCONTRAST BRAIN CT Comparison: CT brain 03/09/2016 Procedure: Multi-detector CT performed through the brain without IV contrast. Automatic exposure control utilized. All CT scans at this facility use dose modulation, iterative reconstruction, and/or weight based dosing when appropriate to reduce radiation dose to as low as reasonably achievable. Findings: There is no intracranial hemorrhage, extra-axial fluid collection, mass effect, midline shift, or hydrocephalus. There is progression in periventricular and deep white matter hypodensities, likely due to chronic small vessel ischemic change. 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 Small old lacunar infarct in right basal ganglia versus cyst of the right choroidal fissure, stable. Continued opacification of mastoid air cells bilaterally. Changes of acute ischemia may be delayed on CT. If there is clinical concern for acute ischemia or other occult abnormality, consider MRI. IMPRESSION: * No acute intracranial findings. * Chronic microvascular ischemic changes. Finalized by Spenser Winston MD on 09/23/2023 5:22 PM Normal [facility] LIVER PANELon 09-23-2023 Albumin [Mass/Vol] 3.8 g/dL Normal 3.2-5.3 [facility] Comment on above: Performed By: #### C BCA, PINR, 10835-1, BMP, 03455-2, LIVR, 20759-1, 77086-6, THYR #### [facility] ([id number]) [address] [place] [address] 68683 ALP [Catalytic activity/Vol] 202 U/L High 39-130 [facility] Comment on above: Performed By: #### C BCA, PINR, 18874-1, BMP, 00267-0, LIVR, 20863-2, 07744-9, THYR #### [facility] ([id number]) [address] [place] [address] 23281 ALT [Catalytic activity/Vol] 28 U/L Normal 0-31 [facility] Comment on above: Performed By: #### C BCA, PINR, 59520-1, BMP, 84760-3, LIVR, 11270-4, 06261-2, THYR #### [facility] ([id number]) [address] [place] [address] 23273 AST [Catalytic activity/Vol] 26 U/L Normal 0-41 [facility] Comment on above: Performed By: #### C BCA, PINR, 22959-9, BMP, 41738-9, LIVR, 44550-7, 00101-9, THYR #### [facility] ([id number]) [address] [place] [address] 41440 Bilirubin [Mass/Vol] 0.8 mg/dL Normal 0.3-1.[address] [facility] Comment on above: Performed By: #### C BCA, PINR, 07715-0, BMP, 56910-1, LIVR, 47552-9, 00356-0, THYR #### [facility] ([id number]) [address] [place] [address] 05175 Bilirubin.direct [Mass/Vol] 0.1 mg/dL Normal 0.0-0.4 [facility] Comment on above: Performed By: #### C BCA, PINR, 64231-0, BMP, 44006-0, LIVR, 68175-3, 99918-8, THYR #### [facility] ([id number]) [address] [place] [address] 86866 Protein [Mass/Vol] 7.4 g/dL Normal 6.0-8.0 [facility] Comment on above: Performed By: #### C BCA, PINR, 09497-7, BMP, 76181-6, LIVR, 03702-5, 06969-0, THYR #### [facility] ([id number]) [address] [place] [address] 87942 MAGNESIUMon 09-23-2023 Magnesium [Mass/Vol] 2.1 mg/dL Normal 1.8-2.[address] [facility] Comment on above: Performed By: #### C BCA, PINR, 71130-4, BMP, 82910-5, LIVR, 13441-3, 73571-5, THYR #### [facility] ([id number]) [address] [place] [address], [place] [address] PROTIME AND INRon 09-23-2023 INR Coag (PPP) [Relative time] 1.1 {INR} Normal 0.8-1.1 [facility] Comment on above: Performed By: #### C BCA, PINR, 55877-6, BMP, 68942-9, LIVR, 73656-5, 88545-7, THYR #### [facility] ([id number]) [address] [place] [address] [place] [address] PT Coag (PPP) [Time] 12.7 s Normal 9.8-13.[address] [facility] Comment on above: Result Comment: NEW REFERENCE RANGE Performed By: #### C BCA, PINR, 56812-5, BMP, 79816-0, LIVR, 37833-5, 84288-4, THYR #### [facility] ([id number]) [address] [place] [address], [place] [address] THYROID PROFILEon 09-23-2023 Free T4 [Mass/Vol] 1.17 ng/dL Normal 0.61-1.60 [facility] Comment on above: Performed By: #### C BCA, PINR, 06479-8, BMP, 59162-0, LIVR, 16351-9, 96089-7, THYR #### [facility] ([id number]) [address] [place] [address] [place] [address] TSH 1.29 uIU/mL Normal 0.49-4.67 [facility] Comment on above: Performed By: #### C BCA, PINR, 61723-4, BMP, 91437-4, LIVR, 47416-3, 76962-2, THYR #### [facility] ([id number]) [address] [place] [address] 40335 Troponin I.cardiac High sens itivity method [Mass/Vol]on 09-23-2023 1 HOUR TROP I, HIGH SENSITIVITY 10 ng/L Normal <16 [facility] Comment on above: Performed By: #### C BCA, PINR, 73262-9, BMP, 48495-5, LIVR, 04103-8, 41186-8, THYR #### [facility] ([id number]) [address] [place] [address] 66452 TROPONIN I, HIGH SENSITIVITY 10 ng/L Normal <16 [facility] Comment on above: Performed By: #### C BCA, PINR, 33665-4, BMP, 63167-1, LIVR, 51755-8, 85180-1, THYR #### [facility] ([id number]) [address] [place] [address] [place] [address] URN MACROSCOPIC NURon 2023 BILIRUBIN DAVIDSON Negative Normal NEG [facility] Comment on above: Performed By: #### C BCA, PINR, 10699-3, BMP, 84831-2, LIVR, 49511-3, 18273-7, THYR #### [facility] ([id number]) [address] [place] [address], [place] [address] BLOOD/HGB DAVIDSON Large Abnormal NEG [facility] Comment on above: Performed By: #### C BCA, PINR, 32783-1, BMP, 54710-0, LIVR, 87696-5, 67476-2, THYR #### [facility] ([id number]) [address] [place] [address], [place] [address] GLUCOSE DAVIDSON 100 mg/dL Abnormal NEG [facility] Comment on above: Performed By: #### C BCA, PINR, 68536-8, BMP, 72842-8, LIVR, 77571-3, 50401-8, THYR #### [facility] ([id number]) [address] [place] [address] 90334 KETONES DAVIDSON Negative Normal NEG [facility] Comment on above: Performed By: #### C BCA, PINR, 93730-0, BMP, 41495-0, LIVR, 57602-2, 23512-6, THYR #### [facility] ([id number]) [address] [place] [address] 86714 LEUKOCYTE ESTERASE DAVIDSON Trace Abnormal NEG [facility] Comment on above: Performed By: #### C BCA, PINR, 13945-5, BMP, 98780-7, LIVR, 35115-5, 10513-7, THYR #### [facility] ([id number]) [address] [place] [address] 19180 NITRITE DAVIDSON Positive Abnormal NEG [facility] Comment on above: Performed By: #### C BCA, PINR, 10712-4, BMP, 30856-2, LIVR, 26015-3, 85705-5, THYR #### [facility] ([id number]) [address] [place] [address] 41768 PH DAVIDSON 5.5 Normal 5.0-8.5 [facility] Comment on above: Performed By: #### C BCA, PINR, 21305-3, BMP, 53405-6, LIVR, 86503-0, 82886-8, THYR #### [facility] ([id number]) [address] [place] [address] 78111 PROTEIN DAVIDSON 30 mg/dL Abnormal NEG [facility] Comment on above: Performed By: #### C BCA, PINR, 67799-8, BMP, 12283-4, LIVR, 21337-2, 27128-0, THYR #### [facility] ([id number]) [address] [place] [address] 52277 SPECIFIC GRAVITY DAVIDSON >=1.030 Normal 1.003-1.035 [facility] Comment on above: Performed By: #### C BCA, PINR, 22995-8, BMP, 19396-1, LIVR, 43219-3, 04652-2, THYR #### [facility] ([id number]) [address] [place] [address] 67846 UROBILINOGEN DAVIDSON 0.2 eu/dL Normal <1.1 [facility] Comment on above: Performed By: #### C BCA, PINR, 10553-9, BMP, 39304-6, LIVR, 02160-4, 55077-2, THYR #### [facility] ([id number]) [address] [place] [address] 77270 XR CHEST 1 VWon 09-23-2023 XR CHEST 1 VW XR CHEST 1 VW Single view chest History: Weakness Comparison: X-ray 02/01/2022 Findings: Single portable view of the chest. Cardiomediastinal silhouette and pulmonary vasculature are within normal limits. Lungs and pleural space are clear. There is no pleural effusion or pneumothorax. Impression: No acute cardiopulmonary process. Finalized by Doug Jo on 09/23/2023 5:21 PM Normal [facility] aPTT Coag (PPP) [Time]on aPTT Coag (Bld) [Time] 29 s Normal 26-37 [facility] Comment on above: Result Comment: NEW REFERENCE RANGE Performed By: #### C BCA, PINR, 09405-5, BMP, 26791-4, LIVR, 78826-5, 55506-7, THYR #### [facility] ([id number]) [address] [place] [address] 21557 ALBUMIN, RANDOM URINE W/CREA TININEon 06-13-2021 ALBUMIN, URINE 0.7 mg/dL Normal See Note: [facility] Comment on above: Result Comment: Refe rence Range: Reference Range Not established Performed By: #### 1 0231, 65, 496, 7600 #### [facility] [place] [address] Elevator Installer Apprentice: Nigel Michaels MD ALBUMIN/CREATININE RATIO, RANDOM URINE 175 mcg/mg creat High <30 [facility] Comment on above: Result Comment: The ADA defines abnormalities in albumin excretion as follows: Albuminuria Category Result (mcg/mg creatinine) Normal to Mildly increased <30 Moderately increased 30-299 Severely increased > OR = 300 The ADA recommends that at least two of three specimens collected within a 3-6 month period be abnormal before considering a patient to be within a diagnostic category. Performed By: #### 1 0231, 65, 496, 7600 #### [facility] [place] [address] Elevator Installer Apprentice: Nigel Michaels MD Creatinine (U) [Mass/Vol] 4 mg/dL Low 20-275 [facility] Comment on above: Performed By: #### 1 023, 65, 496, 7600 #### [facility] [place] [address] Elevator Installer Apprentice: Nigel Michaels MD [facility] METABOLIC [facility] 06-13-2021 Albumin [Mass/Vol] 4.1 g/dL Normal 3.6-5.1 [facility] Comment on above: Performed By: #### 1 023, 65, 496, 7600 #### [facility] [place] [address] Elevator Installer Apprentice: Nigel Michaels MD Albumin/Globulin [Mass ratio] 1.5 {ratio} Normal 1.0-2.5 [facility] Comment on above: Performed By: #### 1 0231, 65, 496, 7600 #### [facility] [place] [address] Elevator Installer Apprentice: Nigel Michaels MD ALP [Catalytic activity/Vol] 206 U/L High 37-153 [facility] Comment on above: Performed By: #### 1 0231, 65, 496, 7600 #### [facility] [place] [address] Elevator Installer Apprentice: Nigel Michaels MD ALT [Catalytic activity/Vol] 20 U/L Normal 6-29 [facility] Comment on above: Performed By: #### 1 0231, 6517, 496, 7600 #### [facility] [place] [address] Elevator Installer Apprentice: Nigel Michaels MD AST [Catalytic activity/Vol] 19 U/L Normal 10-35 [facility] Comment on above: Performed By: #### 1 0231, 65, 496, 7600 #### [facility] [place] [address] Elevator Installer Apprentice: Nigel Michaels MD Bilirubin [Mass/Vol] 0.9 mg/dL Normal 0.2-1.2 [facility] Comment on above: Performed By: #### 1 0231, 65, 496, 7600 #### [facility] [place] [address] Elevator Installer Apprentice: Nigel Michaels MD BUN/CREATININE RATIO NOT APPLICABLE Normal 6-22 [facility] Comment on above: Performed By: #### 1 0231, 65, 496, 7600 #### [facility] [place] [address] Elevator Installer Apprentice: Nigel Michaels MD Calcium [Mass/Vol] 9.4 mg/dL Normal 8.6-10.4 [facility] Comment on above: Performed By: #### 1 0231, 65, 496, 7600 #### [facility] [place] [address] Elevator Installer Apprentice: Nigel Michaels MD Chloride [Moles/Vol] 105 mmol/L Normal 98-110 [facility] Comment on above: Performed By: #### 1 0231, 65, 496, 7600 #### [facility] [place] [address] Elevator Installer Apprentice: Nigel Michaels MD CO2 [Moles/Vol] 27 mmol/L Normal 20-32 [facility] Comment on above: Performed By: #### 1 0231, 65, 496, 7600 #### [facility] [place] [address] Elevator Installer Apprentice: Nigel Michaels MD Creatinine [Mass/Vol] 0.73 mg/dL Normal 0.60-0.93 [facility] Comment on above: Result Comment: For patients >49 years of age, the reference limit for Creatinine is approximately 13% higher for people identified as -Ecuad[place]. Performed By: #### 1 023, 65, 496, 7600 #### [facility] [place] [address] Elevator Installer Apprentice: Nigel Michaels MD eGFR NON-AFR. ANGUILLAN 83 mL/min/1.73m2 Normal > OR = 60 [facility] Comment on above: Performed By: #### 1 230, 65, 496, 7600 #### [facility] [place] [address] Elevator Installer Apprentice: Nigel Michaels MD GFR/1.73 sq M.predicted among blacks MDRD (S/P/Bld) [Vol rate/Area] 97 mL/min/{1.73_m2} Normal > OR = 60 [facility] Comment on above: Performed By: #### 1 0231, 65, 496, 7600 #### [facility] [place] [address] Elevator Installer Apprentice: Nigel Michaels MD Globulin (S) [Mass/Vol] 2.8 g/dL Normal 1.9-3.7 [facility] Comment on above: Performed By: #### 1 0231, 65, 496, 7600 #### [facility] [place] [address] Elevator Installer Apprentice: Nigel Michaels MD Glucose [Mass/Vol] 185 mg/dL High 65-99 [facility] Comment on above: Result Comment: Fasting reference interval For someone without known diabetes, a glucose value >125 mg/dL indicates that they may have diabetes and this should be confirmed with a follow-up test. Performed By: #### 1 0231, 65, 496, 7600 #### [facility] [place] [address] Elevator Installer Apprentice: Nigel Michaels MD Potassium [Moles/Vol] 4.3 mmol/L Normal 3.5-5.3 [facility] Comment on above: Performed By: #### 1 023, 65, 496, 7600 #### [facility] [place] [address] Elevator Installer Apprentice: Nigel Michaels MD Protein [Mass/Vol] 6.9 g/dL Normal 6.1-8.1 [facility] Comment on above: Performed By: #### 1 023, 65, 496, 7600 #### [facility] [place] [address] Elevator Installer Apprentice: Nigel Michaels MD Sodium [Moles/Vol] 138 mmol/L Normal 135-146 [facility] Comment on above: Performed By: #### 1 0231, 65, 496, 7600 #### [facility] [place] [address] Elevator Installer Apprentice: Nigel Michaels MD Urea nitrogen [Mass/Vol] 12 mg/dL Normal 7-25 [facility] Comment on above: Performed By: #### 1 0231, 65, 496, 7600 #### [facility] [place] [address] Elevator Installer Apprentice: Nigel Michaels MD HEMOGLOBIN A1con 06-13-2021 HEMOGLOBIN A1c 8.3 % of total Hgb High <5.7 [facility] Comment on above: Result Comment: For someone without known diabetes, a hemoglobin A1c value of 6.5% or greater indicates that they may have diabetes and this should be confirmed with a follow-up test. For someone with known diabetes, a value <7% indicates that their diabetes is well controlled and a value greater than or equal to 7% indicates suboptimal control. A1c targets should be individualized based on duration of diabetes, age, comorbid conditions, and other considerations. Currently, no consensus exists regarding use of hemoglobin A1c for diagnosis of diabetes for children. Performed By: #### 1 0231, 6517, 496, 7600 #### [facility] [address], [address] [place] [address] Elevator Installer Apprentice: Nigel Michaels MD LIPID PANEL, [facility] 03- Cholesterol [Mass/Vol] 180 mg/dL Normal <200 [facility] Comment on above: Performed By: #### 1 0231, 65, 496, 7600 #### [facility] [address], [address] [place] [address] Elevator Installer Apprentice: Nigel Michaels MD Cholesterol in HDL [Mass/Vol] 53 mg/dL Normal > OR = 50 [facility] Comment on above: Performed By: #### 1 023, 65, 496, 7600 #### [facility] [address], [address] [place] [address] Elevator Installer Apprentice: Nigel Michaels MD Cholesterol in LDL [Mass/Vol] 102 mg/dL High [facility] Comment on above: Result Comment: Refe rence range: <100 Desirable range <100 mg/dL for primary prevention; <70 mg/dL for patients with CHD or diabetic patients with > or = 2 CHD risk factors. LDL-C is now calculated using the Steve-Landy calculation, which is a validated novel method providing better accuracy than the Friedewald equation in the estimation of LDL-C. Steve SALAS et al. PIO. 2013;310(19): 5715-2294 (http://education.Spot Runner.TVplus/faq/ALT512) Performed By: #### 1 0231, 6517, 496, 7600 #### [facility] [address], [address] [place] [address] Elevator Installer Apprentice: Nigel Michaels MD Cholesterol.total/Ch olesterol in HDL [Mass ratio] 3.4 {ratio} Normal <5.0 [facility] Comment on above: Performed By: #### 1 023, 65, 496, 7390 #### [facility] [address], [address] [place] [address] Elevator Installer Apprentice: Nigel Michaels MD NON HDL CHOLESTEROL 127 mg/dL (calc) Normal <130 [facility] Comment on above: Result Comment: For patients with diabetes plus 1 major ASCVD risk factor, treating to a non-HDL-C goal of <100 mg/dL (LDL-C of <70 mg/dL) is considered a therapeutic option. Performed By: #### 1 023, 91, 496, 7600 #### [facility] [place] [address] Elevator Installer Apprentice: Nigel Michaels MD Triglyceride [Mass/Vol] 153 mg/dL High <150 [facility] Comment on above: Performed By: #### 1 023, 65, 496, 4490 #### [facility] [place] [address] Elevator Installer Apprentice: Nigel Michaels MD COVID-19 Antigenon 1 COVID-19 Antigen Healthcare Worker?: N Belkis Reference Belkis Reference Negative SARS-CoV+SARS-CoV-2 (COVID-19) Ag [Presence] in Respiratory specimen by Rapid immunoassay Negative for SARS Antigen by [facility] COVID19 Blank Space Belkis Disclaimer Negative results, from patients with symptom Belkis Disclaimer onset beyond five days, should be treated as Belkis Disclaimer presumptive and confirmation with a molecular Belkis Disclaimer assay, if necessary, for patient management, Belkis Disclaimer may be performed. Negative results do not rule Belkis Disclaimer out COVID-19 and should not be used as the sole Belkis Disclaimer basis for treatment or patient management Belkis Disclaimer decisions, including infection control decisions. Belkis Disclaimer Negative results should be considered in the Belkis Disclaimer context of a patient's recent exposures, history Belkis Disclaimer and the presence of clinical signs and symptoms Belkis Disclaimer consistent with COVID-19. COVID19 Blank Space Belkis Disclaimer The Belkis SARS Antigen WATSON does not differentiate Belkis Disclaimer between SARS-CoV and SARS-CoV-2. COVID19 Blank Space Belkis Disclaimer This test was developed and its performance Belkis Disclaimer characteristic determined by [employer] and Belkis Disclaimer validated at [facility]. This Belkis Disclaimer test has not been FDA cleared or approved. This Belkis Disclaimer test has been authorized by FDA under an Emergency Use Belkis Disclaimer Authorization (EUA). This test has been validated Belkis Disclaimer in accordance with the FDA's Guidance Document (Policy Belkis Disclaimer for Diagnostics Testing in Laboratories Certified to Belkis Disclaimer Perform High Complexity Testing under CLIA prior to Belkis Disclaimer Emergency Use Authorization for Coronavirus Belkis Disclaimer iseas during the Public Health Emergency) Belkis Disclaimer issued on June 18, 2019. This test is only authorized Belkis Disclaimer for the duration of time the declaration that Belkis Disclaimer circumstances exist justifying the authorization of Belkis Disclaimer the emergency use of in vitro diagnostic tests for Belkis Disclaimer detection of SARS-CoV-2 virus and/or diagnosis of Belkis Disclaimer COVID-19 infection under section 564(b)(1) of the Belkis Disclaimer Act, 21 U.S.C. 360bbb-3(b)(1), unless the Belkis Disclaimer authorization is terminated or revoked sooner. PERFORMED BY: [facility] [address] [address] PATHOLOGIST HAZARDOUS WASTE REMOVER BECKA PHELAN M.D. Normal [facility] Comment on above: Performed By: #### S NEPTALI FABIANID-19 BELKIS ####[facility] [address] [place] [address] [facility] Glucose Poct Glucometerson 0 06-23-2020 Commemt1 Glu2: Cleaned Meter Normal [facility] Comment on above: Result Comment: PERF ORMED BY: [facility] [address] [place] [address] PATHOLOGIST HAZARDOUS WASTE REMOVER BECKA PHELAN M.D. Performed By: #### G LULS ####Point of Care testing, Glucose [Mass/Vol] 171 mg/dL Normal [facility] Comment on above: Result Comment: [place] Glucose Reference Range is dependent on time and content of last meal. Glucose of more than 200 mg/dL in a nonstressed, ambulatory subject supports the diagnosis of Diabetes Mellitus. Performed By: #### G LULS ####Point of Care testing, Glucose [Mass/Vol] 138 mg/dL Normal [facility] Comment on above: Result Comment: [place] om Glucose Reference Range is dependent on time and content of last meal. Glucose of more than 200 mg/dL in a nonstressed, ambulatory subject supports the diagnosis of Diabetes Mellitus. PERFORMED BY: [facility] [address] [place] [id number] PATHOLOGIST HAZARDOUS WASTE REMOVER BECKA PHELAN M.D. Performed By: #### G LULS ####Point of Care testing, Belkis Ag Negativeon 06-24-19 21 Belkis Ag Negative Negative Normal Negative [facility] Comment on above: Result Comment: This is a duplicate Belkis SARS Antigen (WATSON) result to be used for statistical tracking purpose only. PERFORMED BY: [facility] [address] [place] [id number] PATHOLOGIST HAZARDOUS WASTE REMOVER BECKA PHELAN M.D. Performed By: #### S OFIANEG, COVID-19 BELKIS ####[facility] [address] [place] [id number] [facility] Glucose Poct Glucometerson 0 06-22-2020 Glucose [Mass/Vol] 186 mg/dL Normal [facility] Comment on above: Result Comment: [place] Glucose Reference Range is dependent on time and content of last meal. Glucose of more than 200 mg/dL in a nonstressed, ambulatory subject supports the diagnosis of Diabetes Mellitus. PERFORMED BY: [facility] [address] [place] [address] PATHOLOGIST HAZARDOUS WASTE REMOVER BECKA PHELAN M.D. Performed By: #### G LULS ####Point of Care testing, Commemt1 Glu2: Cleaned Meter [facility] Comment on above: Result Comment: PERF ORMED BY: [facility] [address] [place] [address] PATHOLOGIST HAZARDOUS WASTE REMOVER BECKA PHELAN M.D. Performed By: #### G LULS ####Point of Care testing, Glucose [Mass/Vol] 150 mg/dL Normal [facility] Comment on above: Result Comment: [place] om Glucose Reference Range is dependent on time and content of last meal. Glucose of more than 200 mg/dL in a nonstressed, ambulatory subject supports the diagnosis of Diabetes Mellitus. Performed By: #### G LULS ####Point of Care testing, Commemt1 Glu2: Cleaned Meter [facility] Comment on above: Result Comment: PERF ORMED BY: [facility] [address] [place] [id number] PATHOLOGIST HAZARDOUS WASTE REMOVER BECKA PHELAN M.D. Performed By: #### G LULS ####Point of Care testing, Glucose [Mass/Vol] 152 mg/dL Normal [facility] Comment on above: Result Comment: [place] om Glucose Reference Range is dependent on time and content of last meal. Glucose of more than 200 mg/dL in a nonstressed, ambulatory subject supports the diagnosis of Diabetes Mellitus. Performed By: #### G LULS ####Point of Care testing, Commemt1 Glu2: Cleaned Meter Normal [facility] Comment on above: Result Comment: PERF ORMED BY: [facility] [place] [address] PATHOLOGIST HAZARDOUS WASTE REMOVER BECKA PHELAN M.D. Performed By: #### G LULS ####Point of Care testing, Glucose [Mass/Vol] 132 mg/dL Normal [facility] Comment on above: Result Comment: [facility] [place][note 2] Glucose Reference Range is dependent on time and content of last meal. Glucose of more than 200 mg/dL in a nonstressed, ambulatory subject supports the diagnosis of Diabetes Mellitus. Performed By: #### G LULS ####Point of Care testing, Hemogram CBC Without Diffon 06-22-2020 Erythrocyte distribution width (RBC) [Ratio] 39.2 % High 11.9-15.3 [facility] Comment on above: Performed By: #### G LULS #### Point of Care testing , Hematocrit (Bld) [Volume fraction] 28.6 % Low 34.0-46.4 [facility] Comment on above: Performed By: #### G LULS #### Point of Care testing , Hemoglobin (Bld) [Mass/Vol] 8.0 g/dL Low 11.8-15.4 [facility] Comment on above: Performed By: #### G LULS #### Point of Care testing , MCH (RBC) [Entitic mass] 17.6 pg Low 24.7-34.3 [facility] Comment on above: Performed By: #### G LULS #### Point of Care testing , MCV (RBC) [Entitic vol] 62.7 fL Low 80-100 [facility] Comment on above: Performed By: #### G LULS #### Point of Care testing , Mean Corpuscular HGB Conc 28.0 g/dL Low 32.0-35.0 [facility] Comment on above: Performed By: #### G LULS #### Point of Care testing , Platelet mean volume (Bld) [Entitic vol] 8.4 fL Normal 6.3-10.7 [facility] Comment on above: Result Comment: PERF ORMED BY: [facility] [address] [place] [id number] PATHOLOGIST HAZARDOUS WASTE REMOVER BECKA PHELAN M.D. Performed By: #### G LULS #### Point of Care testing , Platelets (Bld) [#/Vol] 287 10*3/uL Normal 150-450 [facility] Comment on above: Performed By: #### G LULS #### Point of Care testing , RBC (Bld) [#/Vol] 4.57 10*6/uL Normal 3.60-5.00 [facility] Comment on above: Performed By: #### G LULS #### Point of Care testing , WBC (Bld) [#/Vol] 6.3 10*3/uL Normal 3.8-11.6 [facility] Comment on above: Performed By: #### G LULS #### Point of Care testing , Glucose Poct Glucometerson 0 06-21-2020 Glucose [Mass/Vol] 224 mg/dL Normal [facility] Comment on above: Result Comment: [place] om Glucose Reference Range is dependent on time and content of last meal. Glucose of more than 200 mg/dL in a nonstressed, ambulatory subject supports the diagnosis of Diabetes Mellitus. PERFORMED BY: [facility] [address] [address] PATHOLOGIST HAZARDOUS WASTE REMOVER BECKA PHELAN M.D. Performed By: #### G LULS #### Point of Care testing , Commemt1 Glu2: Cleaned Meter Normal [facility] Comment on above: Result Comment: PERF ORMED BY: [facility] [address] [place] [id number] PATHOLOGIST HAZARDOUS WASTE REMOVER BECKA PHELAN M.D. Performed By: #### G LULS #### Point of Care testing , Glucose [Mass/Vol] 170 mg/dL Normal [facility] Comment on above: Result Comment: [place] om Glucose Reference Range is dependent on time and content of last meal. Glucose of more than 200 mg/dL in a nonstressed, ambulatory subject supports the diagnosis of Diabetes Mellitus. Performed By: #### G LULS #### Point of Care testing , Commemt1 Glu2: Cleaned Meter [facility] Comment on above: Result Comment: PERF ORMED BY: [address] [place] [address] PATHOLOGIST HAZARDOUS WASTE REMOVER BECKA PHELAN M.D. Performed By: #### G LULS #### Point of Care testing , Glucose [Mass/Vol] 155 mg/dL Normal [facility] Comment on above: Result Comment: [place] om Glucose Reference Range is dependent on time and content of last meal. Glucose of more than 200 mg/dL in a nonstressed, ambulatory subject supports the diagnosis of Diabetes Mellitus. Performed By: #### G LULS #### Point of Care testing , Commemt1 Glu2: Cleaned Meter [facility] Comment on above: Result Comment: PERF ORMED BY: [address] [address] PATHOLOGIST HAZARDOUS WASTE REMOVER BECKA PHELAN M.D. Performed By: #### G LULS #### Point of Care testing , Glucose [Mass/Vol] 130 mg/dL Normal [facility] Comment on above: Result Comment: [place] om Glucose Reference Range is dependent on time and content of last meal. Glucose of more than 200 mg/dL in a nonstressed, ambulatory subject supports the diagnosis of Diabetes Mellitus. Performed By: #### G LULS #### Point of Care testing , Hemogram CBC Without Diffon 06-21-2020 Erythrocyte distribution width (RBC) [Ratio] 38.4 % High 11.9-15.3 [facility] Comment on above: Performed By: #### G LULS #### Point of Care testing , Hematocrit (Bld) [Volume fraction] 27.2 % Low 34.0-46.4 [facility] Comment on above: Performed By: #### G LULS #### Point of Care testing , Hemoglobin (Bld) [Mass/Vol] 7.9 g/dL Low 11.8-15.4 [facility] Comment on above: Performed By: #### G NORRIS #### Point of Care testing , MCH (RBC) [Entitic mass] 17.6 pg Low 24.7-34.3 [facility] Comment on above: Performed By: #### G ROHANLS #### Point of Care testing , MCV (RBC) [Entitic vol] 60.7 fL Low 80-100 [facility] Comment on above: Performed By: #### G ROHANLS #### Point of Care testing , Mean Corpuscular HGB Conc 29.1 g/dL Low 32.0-35.0 [facility] Comment on above: Performed By: #### G ROHANLS #### Point of Care testing , Platelet mean volume (Bld) [Entitic vol] 8.4 fL Normal 6.3-10.7 [facility] Comment on above: Result Comment: PERF ORMED BY: [place] [address] PATHOLOGIST HAZARDOUS WASTE REMOVER BECKA PHELAN M.D. Performed By: #### G NORRIS #### Point of Care testing , Platelets (Bld) [#/Vol] 288 10*3/uL Normal 150-450 [facility] Comment on above: Performed By: #### G NORRIS #### Point of Care testing , RBC (Bld) [#/Vol] 4.47 10*6/uL Normal 3.60-5.00 [facility] Comment on above: Performed By: #### G NORRIS #### Point of Care testing , WBC (Bld) [#/Vol] 9.2 10*3/uL Normal 3.8-11.6 [facility] Comment on above: Performed By: #### G NORRIS #### Point of Care testing , Basic Metabolic Panelon Calcium [Mass/Vol] 8.3 mg/dL Normal 8.2-10.2 [facility] Comment on above: Performed By: #### H APT #### [place] [address] [place] Chloride [Moles/Vol] 104 mmol/L Normal 95-114 [facility] Comment on above: Performed By: #### H APT #### [facility] [address] [place] [address] [place] CO2 [Moles/Vol] 24.2 mmol/L Normal 22.0-30.0 [facility] Comment on above: Performed By: #### H APT #### [facility] [address] Creatinine [Mass/Vol] 0.77 mg/dL Normal 0.44-1.03 [facility] Comment on above: Performed By: #### H APT #### [facility] [address] [place] [address] [place] Creatinine Clr Calc Pharmacy 90.19 [facility] Comment on above: Result Comment: PERF ORMED BY: [place] [address] PATHOLOGIST HAZARDOUS WASTE REMOVER BECKA PHELAN M.D. Performed By: #### H APT #### [address] Estimated GFR ( Diane > 60 [facility] Comment on above: Result Comment: GFR estimated reference range: According to KDOQI guidelines, <60 ml/min/1.73m2 is sufficient to diagnose a patient with chronic kidney disease. Performed By: #### H APT #### [address] Estimated GFR (Non- Am > 60 [facility] Comment on above: Performed By: #### H APT #### [place] [address] [place] Glucose [Mass/Vol] 132 mg/dL High 70-100 [facility] Comment on above: Result Comment: [place] om Glucose Reference Range is dependent on time and content of last meal. Glucose of more than 200 mg/dL in a nonstressed, ambulatory subject supports the diagnosis of Diabetes Mellitus. ADA recommended reference range Performed By: #### H APT #### [place] [address] [place] Potassium [Moles/Vol] 3.3 mmol/L Low 3.5-5.1 [facility] Comment on above: Performed By: #### H APT #### [facility] [address] [place] [address] [place] Sodium [Moles/Vol] 136 mmol/L Normal 136-146 [facility] Comment on above: Performed By: #### H APT #### [facility] [address] [place] [address] [place] Urea nitrogen [Mass/Vol] 2 mg/dL Low 9-23 [facility] Comment on above: Performed By: #### H APT #### [address] Glucose Poct Glucometerson 0 06-20-2020 Glucose [Mass/Vol] 148 mg/dL Normal [facility] Comment on above: Result Comment: [place] om Glucose Reference Range is dependent on time and content of last meal. Glucose of more than 200 mg/dL in a nonstressed, ambulatory subject supports the diagnosis of Diabetes Mellitus. PERFORMED BY: [place] [address] PATHOLOGIST HAZARDOUS WASTE REMOVER BECKA PHELAN M.D. Performed By: #### G LULS #### Point of Care testing , Commemt1 Glu2: Cleaned Meter Normal [facility] Comment on above: Result Comment: PERF ORMED BY: [place] [address] PATHOLOGIST HAZARDOUS WASTE REMOVER BECKA PHELAN M.D. Performed By: #### H APT #### [address] Glucose [Mass/Vol] 123 mg/dL Normal [facility] Comment on above: Result Comment: [place] om Glucose Reference Range is dependent on time and content of last meal. Glucose of more than 200 mg/dL in a nonstressed, ambulatory subject supports the diagnosis of Diabetes Mellitus. Performed By: #### H APT #### [place] [address] [place] Glucose [Mass/Vol] 136 mg/dL Normal [facility] Comment on above: Result Comment: [facility] [place][note 2] Glucose Reference Range is dependent on time and content of last meal. Glucose of more than 200 mg/dL in a nonstressed, ambulatory subject supports the diagnosis of Diabetes Mellitus. PERFORMED BY: [place] [address] PATHOLOGIST HAZARDOUS WASTE REMOVER BECKA PHELAN M.D. Performed By: #### H APT #### [address] Hepatic Panelon 06-20-2020 Albumin [Mass/Vol] 3.0 g/dL Low 3.2-5.5 [facility] Comment on above: Performed By: #### H APT #### [address] Albumin/Globulin [Mass ratio] 1.0 {ratio} Normal [facility] Comment on above: Performed By: #### H APT #### [address] ALP [Catalytic activity/Vol] 135 U/L High 32-92 [facility] Comment on above: Performed By: #### H APT #### [address] ALT [Catalytic activity/Vol] 15 U/L Normal 10-60 [facility] Comment on above: Performed By: #### H APT #### [address] AST [Catalytic activity/Vol] 18 U/L Normal 10-42 [facility] Comment on above: Performed By: #### H APT #### [address] Bilirubin [Mass/Vol] 2.1 mg/dL High 0.3-1.2 [facility] Comment on above: Result Comment: Samp les from patients who have taken Naproxen have shown spurious elevation in Total Bilirubin levels. A metabolite of Naproxen, O-desmethylnaproxen, has been shown to interfere with the Rigo-Sb method for measuring Total Bilirubin. Performed By: #### H APT #### [address] Bilirubin,Indirect 1.8 mg/dL Normal [facility] Comment on above: Performed By: #### H APT #### [address] Bilirubin.indirect [Mass/Vol] 0.3 mg/dL Normal 0.0-0.4 [facility] Comment on above: Performed By: #### H APT #### [address] Globulin (S) [Mass/Vol] 3.1 g/dL Normal [facility] Comment on above: Performed By: #### H APT #### [address] Protein [Mass/Vol] 6.1 g/dL Normal 6.1-7.9 [facility] Comment on above: Performed By: #### H APT #### [address] Miguel Angel 06-20-2020 L - -------- Specimen: [id number] Received: 06/20/20 Status: CHERELLE Gamez Num: [id number] Spec Type: Surgical Subm Dr: Kalpesh Joe Jr, DO Tissues: A Colon - Polyp (POLYP CECAL) Procedures: HE Stain/4, Gross/Micro L4 -------- Patient Age/Sex Location Account Attending Physician -------- Stew Mcdaniel 69/F 4P [id number] Lucien Major MD -------- SPEC NUM: [id number] RECD: 06/20/20 STATUS: KERWINOlga DANII NUM: [id number] GLADYS: 06/20/20 DR: Kalpesh Joe Jr, DO ENTERED: 06/20/[address]: TASHA TYPE: Surgical DEPT: S ORDERED: HE Stain/4, Gross/Micro L4 ORDERED: HE Stain/4, Gross/Micro L4 Pathological Diagnosis Cecum, biopsy: - Tubular adenoma Clinical Information Anemia Gross Description Received in formalin labeled with the patient's name, number and polyp cecal are multiple lackey-pink tissue fragments ranging from 0.1 cm to 0.7 cm. The resection margin on the largest tissue fragment is inked blue and the fragment is bisected. Entirely submitted in two cassettes labeled A1-A2. (SM/JS) Microscopic Description Two glass slides with H E stained material have been examined. The microscopic findings support the above pathologic diagnosis. [id number] -------- -------- Specimen: [id number] Received: 06/20/20 Status: CHERELLE Gamez Num: [id number] Spec Type: Surgical Subm Dr: Kalpesh Joe Jr, DO Tissues: A Colon - Polyp (POLYP CECAL) Procedures: HE Stain/4, Gross/Micro L4 -------- Patient: Stew Mcdaniel [id number] (Continued) -------- Signed (signature on file) Becka Phelan MD 06/21/20 150 Normal [facility] Scan and CBCon 06-20-2020 Anisocytosis Ql (Bld) Marked Normal [facility] Comment on above: Performed By: #### H APT #### [address] Basophils (Bld) [#/Vol] 0.1 10*3/uL Normal 0.0-0.2 [facility] Comment on above: Performed By: #### H APT #### [address] Basophils/100 WBC (Bld) 1.2 % Normal . [facility] Comment on above: Performed By: #### H APT #### [address] Crenated RBC Normal [facility] Comment on above: Result Comment: RARE Performed By: #### H APT #### [address] Eosinophils (Bld) [#/Vol] 0.7 10*3/uL High 0.0-0.45 [facility] Comment on above: Performed By: #### H APT #### [address] Eosinophils/100 WBC (Bld) 7.7 % Normal . [facility] Comment on above: Performed By: #### H APT #### [address] Erythrocyte distribution width (RBC) [Ratio] 37.1 % High 11.9-15.3 [facility] Comment on above: Performed By: #### H APT #### [address] Hematocrit (Bld) [Volume fraction] 27.8 % Low 34.0-46.4 [facility] Comment on above: Performed By: #### H APT #### [address] Hemoglobin (Bld) [Mass/Vol] 7.8 g/dL Low 11.8-15.4 [facility] Comment on above: Performed By: #### H APT #### [address] Hypochromasia Marked Normal [facility] Comment on above: Performed By: #### H APT #### [address] Lymphocytes (Bld) [#/Vol] 0.4 10*3/uL Low 1.00-4.8 [facility] Comment on above: Performed By: #### H APT #### [address] Lymphocytes/100 WBC (Bld) 4.0 % Normal . [facility] Comment on above: Performed By: #### H APT #### [address] MCH (RBC) [Entitic mass] 17.0 pg Low 24.7-34.3 [facility] Comment on above: Performed By: #### H APT #### [address] MCV (RBC) [Entitic vol] 60.5 fL Low 80-100 [facility] Comment on above: Performed By: #### H APT #### [address] Mean Corpuscular HGB Conc 28.1 g/dL Low 32.0-35.0 [facility] Comment on above: Performed By: #### H APT #### [address] Microcytosis Marked Normal [facility] Comment on above: Performed By: #### H APT #### [address] Monocytes (Bld) [#/Vol] 0.5 10*3/uL Normal 0.0-0.8 [facility] Comment on above: Performed By: #### H APT #### [address] Monocytes/100 WBC (Bld) 5.8 % Normal . [facility] Comment on above: Performed By: #### H APT #### [address] Neutrophils (Bld) [#/Vol] 7.2 10*3/uL Normal 1.8-7.7 [facility] Comment on above: Performed By: #### H APT #### [address] Neutrophils/100 WBC (Bld) 81.3 % Normal . [facility] Comment on above: Performed By: #### H APT #### [address] Nucleated RBC/100 WBC (Bld) [Ratio] 0.3 % Normal 0-0.5 [facility] Comment on above: Performed By: #### H APT #### [address] Ovalocytes Moderate Normal [facility] Comment on above: Performed By: #### H APT #### [address] Platelet Estimate Normal Normal Normal [facility] Comment on above: Performed By: #### H APT #### [address] Platelet mean volume (Bld) [Entitic vol] 8.4 fL Normal 6.3-10.7 [facility] Comment on above: Performed By: #### H APT #### [address] Platelet Morphology Normal Normal Normal [facility] Comment on above: Result Comment: PERF ORMED BY: [place] [address] PATHOLOGIST HAZARDOUS WASTE REMOVER BECKA PHELAN M.D. Performed By: #### H APT #### [address] Platelets (Bld) [#/Vol] 341 10*3/uL Normal 150-450 [facility] Comment on above: Performed By: #### H APT #### [address] Polychromasia Slight Normal [facility] Comment on above: Performed By: #### H APT #### [address] RBC (Bld) [#/Vol] 4.60 10*6/uL Normal 3.60-5.00 [facility] Comment on above: Performed By: #### H APT #### [facility] [address] [place] [address] [place] Rouleaux Slight Normal [facility] Comment on above: Performed By: #### H APT #### [facility] [address] [place] [address] Target Cells Normal [facility] Comment on above: Result Comment: RARE Performed By: #### H APT #### [address] Tear Drop Cells Moderate Normal [facility] Comment on above: Performed By: #### H APT #### [address] WBC (Bld) [#/Vol] 8.8 10*3/uL Normal 4.5-11.0 [facility] Comment on above: Performed By: #### H APT #### [address] US venous duplex LE BIon US venous duplex LE BI [facility] Main [place] [address] [place] [address] Ultrasound Report Signed Patient: Stew Mcdaniel MR#: [id number] 40 : 1950 Acct:[id number] Age/Sex: 69 / F ADM Date: 06/18/20 Loc: Room: [address] [place] [address] Type: ADM IN Attending Dr: Lucien Major MD Ordering Provider: Francisca Bazzi MD Date of Service: 06/18/20 US/US venous duplex LE BI: Edema r/o DVT Copies to: MD Francisca Grewal MD Bilateral lower extremity venous duplex examination Indication for study: Swollen legs with history of deep vein thrombosis PROCEDURE: Color-flow duplex scanning is used to interrogate the venous system of both lower extremities. The right leg images are fairly good. There is partial compressibility in the right common femoral vein at the saphenofemoral junction showing some laminated thrombus that's likely chronic. The more proximal common femoral vein is patent. The distal superficial femoral vein, popliteal vein and calf veins are all compressible. The saphenous vein is compressible. The patient's left leg the imaging is not as good. The common femoral vein and femoral vein appear compressible. There is an area the popliteal vein that shows incomplete compressibility but does have residual color-flow. The calf veins and saphenous vein are compressible. US/US venous duplex LE BI IMPRESSION: This study does not show any acute deep vein thrombosis but shows what appears to be chronic injury in the right leg involving the distal common femoral vein and in the left leg at the popliteal level. Impression dictated by: Daniel Noel M.D.06/20/2020 1:59 PM Dictation Location: [place] [address] Tech: Radha Landin Transcribed By: HOMAR 06/20/20 3966 Dictated By: Daniel Noel MD 06/20/20 1353 Signed By: 06/20/20 1356 Normal [facility] Basic Metabolic Panelon Calcium [Mass/Vol] 8.4 mg/dL Normal 8.2-10.2 [facility] Comment on above: Performed By: #### P TT, PT, RETIC #### [facility] [address] [place] [id number] [place] Chloride [Moles/Vol] 106 mmol/L Normal 95-114 [facility] Comment on above: Performed By: #### P TT, PT, RETIC #### [facility] [address] [place] [phone] [place] CO2 [Moles/Vol] 23.4 mmol/L Normal 22.0-30.0 [facility] Comment on above: Performed By: #### P TT, PT, RETIC #### [facility] [address] [place] [address] [place] Creatinine [Mass/Vol] 0.73 mg/dL Normal 0.44-1.03 [facility] Comment on above: Performed By: #### P TT, PT, RETIC #### [facility] [address] [place] [phone] [place] Creatinine Clr Calc Pharmacy 90.73 Normal [facility] Comment on above: Result Comment: PERF ORMED BY: [place] [address] PATHOLOGIST HAZARDOUS WASTE REMOVER BECKA PHELAN M.D. Performed By: #### P TT, PT, RETIC #### [place] [address] [place] Estimated GFR ( Diane > 60 Normal [facility] Comment on above: Result Comment: GFR estimated reference range: According to KDOQI guidelines, <60 ml/min/1.73m2 is sufficient to diagnose a patient with chronic kidney disease. Performed By: #### P TT, PT, RETIC #### [place] [address] [place] Estimated GFR (Non- Am > 60 Normal [facility] Comment on above: Performed By: #### P TT, PT, RETIC #### [place] [address] [place] Glucose [Mass/Vol] 137 mg/dL High 70-100 [facility] Comment on above: Result Comment: [place] Glucose Reference Range is dependent on time and content of last meal. Glucose of more than 200 mg/dL in a nonstressed, ambulatory subject supports the diagnosis of Diabetes Mellitus. ADA recommended reference range Performed By: #### P TT, PT, RETIC #### [place] [address] [place] Potassium [Moles/Vol] 3.4 mmol/L Low 3.5-5.1 [facility] Comment on above: Performed By: #### P TT, PT, RETIC #### [place] [address] [place] Sodium [Moles/Vol] 139 mmol/L Normal 136-146 [facility] Comment on above: Performed By: #### P TT, PT, RETIC #### [place] [address] [place] Urea nitrogen [Mass/Vol] 5 mg/dL Low 9-23 [facility] Comment on above: Performed By: #### P TT, PT, RETIC #### [place] [address] [place] Glucose Poct Glucometerson 0 06-19-2020 Glucose [Mass/Vol] 156 mg/dL Normal [facility] Comment on above: Result Comment: [place] om Glucose Reference Range is dependent on time and content of last meal. Glucose of more than 200 mg/dL in a nonstressed, ambulatory subject supports the diagnosis of Diabetes Mellitus. PERFORMED BY: [place] [address] PATHOLOGIST HAZARDOUS WASTE REMOVER BECKA PHELAN M.D. Performed By: #### H APT #### [address] Commemt1 Glu2: Cleaned Meter [facility] Comment on above: Result Comment: PERF ORMED BY: [place] [address] PATHOLOGIST HAZARDOUS [employer]OVER BECKA PHELAN M.D. Performed By: #### H APT #### [address] Glucose [Mass/Vol] 134 mg/dL Normal [facility] Comment on above: Result Comment: [place] om Glucose Reference Range is dependent on time and content of last meal. Glucose of more than 200 mg/dL in a nonstressed, ambulatory subject supports the diagnosis of Diabetes Mellitus. Performed By: #### H APT #### [address] Commemt1 Glu2: Cleaned Meter [facility] Comment on above: Result Comment: PERF ORMED BY: [place] [address] PATHOLOGIST HAZARDOUS WASTE [employer]OVER BECKA PHELAN M.D. Performed By: #### H APT #### [address] Glucose [Mass/Vol] 129 mg/dL Normal [facility] Comment on above: Result Comment: [place] om Glucose Reference Range is dependent on time and content of last meal. Glucose of more than 200 mg/dL in a nonstressed, ambulatory subject supports the diagnosis of Diabetes Mellitus. Performed By: #### H APT #### [address] Commemt1 Glu2: Cleaned Meter Normal [facility] Comment on above: Result Comment: PERF ORMED BY: [place] [address] PATHOLOGIST HAZARDOUS [employer]ASTE [employer]OVER BECKA PHELAN M.D. Performed By: #### P TT, PT, RETIC #### [address] Glucose [Mass/Vol] 145 mg/dL Normal [facility] Comment on above: Result Comment: [facility] [place][note 2] Glucose Reference Range is dependent on time and content of last meal. Glucose of more than 200 mg/dL in a nonstressed, ambulatory subject supports the diagnosis of Diabetes Mellitus. Performed By: #### P TT, PT, RETIC #### [address] Haptoglobinon 06-19-2020 Haptoglobin 144 mg/dL Normal 37-246 [facility] Comment on above: Result Comment: PERF ORMED BY: [place] [address] PATHOLOGIST HAZARDOUS [employer]OVER BECKA PHELAN M.D. Performed By: #### P TT, PT, RETIC #### [address] Hemoglobin and Hematocriton 06-19-2020 Hematocrit (Bld) [Volume fraction] 25.7 % Low 34.0-46.4 [facility] Comment on above: Result Comment: PERF ORMED BY: [place] [address] PATHOLOGIST HAZARDOUS W[employer]E [employer]OVER BECKA PHELAN M.D. Performed By: #### H APT #### [address] Hemoglobin (Bld) [Mass/Vol] 7.4 g/dL Low 11.8-15.4 [facility] Comment on above: Performed By: #### H APT #### [place] [id number] [place] Hematocrit (Bld) [Volume fraction] 29.1 % Low 34.0-46.4 [facility] Comment on above: Result Comment: PERF ORMED BY: [address] [place] [address] PATHOLOGIST HAZARDOUS WASTE [employer]OVER BECKA PHELAN M.D. Performed By: #### H APT #### [address] Hemoglobin (Bld) [Mass/Vol] 8.3 g/dL Low 11.8-15.4 [facility] Comment on above: Performed By: #### H APT #### [address] Hepatic Panelon 06-19-2020 Albumin [Mass/Vol] 2.9 g/dL Low 3.2-5.5 [facility] Comment on above: Performed By: #### P TT, PT, RETIC #### [address] Albumin/Globulin [Mass ratio] 0.9 {ratio} Normal [facility] Comment on above: Performed By: #### P TT, PT, RETIC #### [address] ALP [Catalytic activity/Vol] 140 U/L High 32-92 [facility] Comment on above: Performed By: #### P TT, PT, RETIC #### [address] ALT [Catalytic activity/Vol] 10 U/L Normal 10-60 [facility] Comment on above: Performed By: #### P TT, PT, RETIC #### [address] AST [Catalytic activity/Vol] 15 U/L Normal 10-42 [facility] Comment on above: Performed By: #### P TT, PT, RETIC #### [address] Bilirubin [Mass/Vol] 2.2 mg/dL High 0.3-1.2 [facility] Comment on above: Result Comment: Samp les from patients who have taken Naproxen have shown spurious elevation in Total Bilirubin levels. A metabolite of Naproxen, O-desmethylnaproxen, has been shown to interfere with the Jendrassik-Grof method for measuring Total Bilirubin. Performed By: #### P TT, PT, RETIC #### [facility] [address] Bilirubin,Indirect 1.9 mg/dL Normal [facility] Comment on above: Performed By: #### P TT, PT, RETIC #### [facility] [address] Bilirubin.indirect [Mass/Vol] 0.3 mg/dL Normal 0.0-0.4 [facility] Comment on above: Performed By: #### P TT, PT, RETIC #### [address] Globulin (S) [Mass/Vol] 3.1 g/dL Normal [facility] Comment on above: Performed By: #### P TT, PT, RETIC #### [address] Protein [Mass/Vol] 6.0 g/dL Low 6.1-7.9 [facility] Comment on above: Performed By: #### P TT, PT, RETIC #### [address] LDH Lactate Dehydrogenaseon 06-19-2020 LDH Lactate Dehydrogenase 160 U/L Normal 45-190 [facility] Comment on above: Result Comment: PERF ORMED BY: [place] [address] PATHOLOGIST HAZARDOUS WASTE [employer]OVER BECKA PHELAN M.D. Performed By: #### P TT, PT, RETIC #### [address] Reticulocyte Counton 021 Reticulocyte Number 0.098 10*6/uL High 0.024-0.084 [facility] Comment on above: Result Comment: PERF ORMED BY: [place] [address] PATHOLOGIST HAZARDOUS WASTE [employer]OVER BECKA PHELAN M.D. Performed By: #### P TT, PT, RETIC #### [address] Reticulocyte Percent 2.2 % High 0.5-1.5 [facility] Comment on above: Performed By: #### P TT, PT, RETIC #### [address] Scan and CBCon 06-19-2020 Anisocytosis Ql (Bld) Marked Normal [facility] Comment on above: Performed By: #### P TT, PT, RETIC #### [address] Basophils (Bld) [#/Vol] 0.1 10*3/uL Normal 0.0-0.2 [facility] Comment on above: Performed By: #### P TT, PT, RETIC #### [place] [address] [place] Basophils/100 WBC (Bld) 0.8 % Normal . [facility] Comment on above: Performed By: #### P TT, PT, RETIC #### [address] Eosinophils (Bld) [#/Vol] 0.3 10*3/uL Normal 0.0-0.45 [facility] Comment on above: Performed By: #### P TT, PT, RETIC #### [place] [address] [place] Eosinophils/100 WBC (Bld) 5.2 % Normal . [facility] Comment on above: Performed By: #### P TT, PT, RETIC #### [address] Erythrocyte distribution width (RBC) [Ratio] 37.2 % High 11.9-15.3 [facility] Comment on above: Performed By: #### P TT, PT, RETIC #### [address] [address] [place] Hematocrit (Bld) [Volume fraction] 26.2 % Low 34.0-46.4 [facility] Comment on above: Performed By: #### P TT, PT, RETIC #### [address] Hemoglobin (Bld) [Mass/Vol] 7.5 g/dL Low 11.8-15.4 [facility] Comment on above: Performed By: #### P TT, PT, RETIC #### [address] Hypochromasia Marked Normal [facility] Comment on above: Performed By: #### P TT, PT, RETIC #### [address] Lymphocytes (Bld) [#/Vol] 0.4 10*3/uL Low 1.00-4.8 [facility] Comment on above: Performed By: #### P TT, PT, RETIC #### [address] Lymphocytes/100 WBC (Bld) 6.8 % Normal . [facility] Comment on above: Performed By: #### P TT, PT, RETIC #### [address] MCH (RBC) [Entitic mass] 16.9 pg Low 24.7-34.3 [facility] Comment on above: Performed By: #### P TT, PT, RETIC #### [address] MCV (RBC) [Entitic vol] 59.1 fL Low 80-100 [facility] Comment on above: Performed By: #### P TT, PT, RETIC #### [address] Mean Corpuscular HGB Conc 28.6 g/dL Low 32.0-35.0 [facility] Comment on above: Performed By: #### P TT, PT, RETIC #### [address] Microcytosis Marked Normal [facility] Comment on above: Performed By: #### P TT, PT, RETIC #### [address] Monocytes (Bld) [#/Vol] 0.4 10*3/uL Normal 0.0-0.8 [facility] Comment on above: Performed By: #### P TT, PT, RETIC #### [place] [address] [place] Monocytes/100 WBC (Bld) 7.0 % Normal . [facility] Comment on above: Performed By: #### P TT, PT, RETIC #### [address] Neutrophils (Bld) [#/Vol] 5.0 10*3/uL Normal 1.8-7.7 [facility] Comment on above: Performed By: #### P TT, PT, RETIC #### [address] Neutrophils/100 WBC (Bld) 80.2 % Normal . [facility] Comment on above: Performed By: #### P TT, PT, RETIC #### [place] [address] [place] Nucleated RBC/100 WBC (Bld) [Ratio] 0.3 % Normal 0-0.5 [facility] Comment on above: Performed By: #### P TT, PT, RETIC #### [place] [address] [place] Platelet Estimate Normal Normal Normal [facility] Comment on above: Performed By: #### P TT, PT, RETIC #### [place] [address] [place] Platelet mean volume (Bld) [Entitic vol] 8.4 fL Normal 6.3-10.7 [facility] Comment on above: Performed By: #### P TT, PT, RETIC #### [address] Platelet Morphology Normal Normal Normal [facility] Comment on above: Result Comment: PERF ORMED BY: [place] [address] PATHOLOGIST HAZARDOUS WASTE [employer]OVER BECKA PHELAN M.D. Performed By: #### P TT, PT, RETIC #### [address] Platelets (Bld) [#/Vol] 332 10*3/uL Normal 150-450 [facility] Comment on above: Performed By: #### P TT, PT, RETIC #### [address] RBC (Bld) [#/Vol] 4.44 10*6/uL Normal 3.60-5.00 [facility] Comment on above: Performed By: #### P TT, PT, RETIC #### [address] Tear Drop Cells Slight Normal [facility] Comment on above: Performed By: #### P TT, PT, RETIC #### [address] WBC (Bld) [#/Vol] 6.2 10*3/uL Normal 4.5-11.0 [facility] Comment on above: Performed By: #### P TT, PT, RETIC #### [address] ABO/Rh Retypeon 06-18-2020 ABO/RH Recheck Result Positive Normal [facility] Comment on above: Result Comment: PERF ORMED BY: [place] [address] PATHOLOGIST HAZARDOUS WASTE [employer]OVER BECKA PHELAN M.D. Basic Metabolic Panelon 04-0 Calcium [Mass/Vol] 8.4 mg/dL Normal 8.2-10.2 [facility] Comment on above: Performed By: #### F ER, PHOS, MG, HEPATIC, [id number], TSH3, SCAN CBC, BMP, FE and TIBC #### [address] Chloride [Moles/Vol] 104 mmol/L Normal 95-114 [facility] Comment on above: Performed By: #### F ER, PHOS, MG, HEPATIC, [id number], TSH3, SCAN CBC, BMP, FE and TIBC #### [facility] [address] CO2 [Moles/Vol] 26.0 mmol/L Normal 22.0-30.0 [facility] Comment on above: Performed By: #### F ER, PHOS, MG, HEPATIC, [id number], TSH3, SCAN CBC, BMP, FE and TIBC #### [facility] [address] Creatinine [Mass/Vol] 0.72 mg/dL Normal 0.44-1.03 [facility] Comment on above: Performed By: #### F ER, PHOS, MG, HEPATIC, [id number], TSH3, SCAN CBC, BMP, FE and TIBC #### [address] Creatinine Clr Calc Pharmacy 90.73 [facility] Comment on above: Performed By: #### F ER, PHOS, MG, HEPATIC, [id number], TSH3, SCAN CBC, BMP, FE and TIBC #### [address] Estimated GFR ( Diane > 60 [facility] Comment on above: Result Comment: GFR estimated reference range: According to KDOQI guidelines, <60 ml/min/1.73m2 is sufficient to diagnose a patient with chronic kidney disease. Performed By: #### F ER, PHOS, MG, HEPATIC, [id number], TSH3, SCAN CBC, BMP, FE and TIBC #### [address] Estimated GFR (Non- Am > 60 [facility] Comment on above: Performed By: #### F ER, PHOS, MG, HEPATIC, [id number], TSH3, SCAN CBC, BMP, FE and TIBC #### [facility] [address] Glucose [Mass/Vol] 139 mg/dL High 70-100 [facility] Comment on above: Result Comment: [place] om Glucose Reference Range is dependent on time and content of last meal. Glucose of more than 200 mg/dL in a nonstressed, ambulatory subject supports the diagnosis of Diabetes Mellitus. ADA recommended reference range Performed By: #### F ER, PHOS, MG, HEPATIC, [id number], TSH3, SCAN CBC, BMP, FE and TIBC #### [facility] [address] Potassium [Moles/Vol] 3.6 mmol/L Normal 3.5-5.1 [facility] Comment on above: Performed By: #### F ER, PHOS, MG, HEPATIC, [id number], TSH3, SCAN CBC, BMP, FE and TIBC #### [facility] [address] Sodium [Moles/Vol] 139 mmol/L Normal 136-146 [facility] Comment on above: Performed By: #### F ER, PHOS, MG, HEPATIC, [id number], TSH3, SCAN CBC, BMP, FE and TIBC #### [facility] [address] Urea nitrogen [Mass/Vol] 4 mg/dL Low 9-23 [facility] Comment on above: Performed By: #### F ER, PHOS, MG, HEPATIC, [id number], TSH3, SCAN CBC, BMP, FE and TIBC #### [facility] [address] Ferritinon 06-18-2020 Ferritin [Mass/Vol] 3.8 ng/mL Low 11-306.8 [facility] Comment on above: Performed By: #### P TT, PT, RETIC #### [facility] [address] [place] [address] Glucose Poct Glucometerson 0 06-18-2020 Glucose [Mass/Vol] 132 mg/dL Normal [facility] Comment on above: Result Comment: [place] om Glucose Reference Range is dependent on time and content of last meal. Glucose of more than 200 mg/dL in a nonstressed, ambulatory subject supports the diagnosis of Diabetes Mellitus. PERFORMED BY: [place] [address] PATHOLOGIST HAZARDOUS WASTE [employer]OVER BECKA PHELAN M.D. Performed By: #### P TT, PT, RETIC #### [facility] [address] [place] [address] Commemt1 Glu2: Cleaned Meter Normal [facility] Comment on above: Result Comment: PERF ORMED BY: [place] [address] PATHOLOGIST HAZARDOUS [employer] PHELAN M.D. Performed By: #### P TT, PT, RETIC #### [address] Glucose [Mass/Vol] 132 mg/dL Normal [facility] Comment on above: Result Comment: [place] om Glucose Reference Range is dependent on time and content of last meal. Glucose of more than 200 mg/dL in a nonstressed, ambulatory subject supports the diagnosis of Diabetes Mellitus. Performed By: #### P TT, PT, RETIC #### [address] Commemt1 Glu2: Cleaned Meter Normal [facility] Comment on above: Result Comment: PERF ORMED BY: [place] [address] PATHOLOGIST HAZARDOUS WAST[employer]OVER [employer]ECKA PHELAN M.D. Performed By: #### G LULS #### Point of Care testing , Glucose [Mass/Vol] 127 mg/dL Normal [facility] Comment on above: Result Comment: [place] om Glucose Reference Range is dependent on time and content of last meal. Glucose of more than 200 mg/dL in a nonstressed, ambulatory subject supports the diagnosis of Diabetes Mellitus. Performed By: #### G LULS #### Point of Care testing , Haptoglobinon 06-18-2020 Haptoglobin 156 mg/dL Normal 37-246 [facility] Comment on above: Result Comment: PERF ORMED BY: [place] [address] PATHOLOGIST HAZARDOUS W[employer]OVER [employer]ECKA PHELAN M.D. Performed By: #### H APT #### [address] Hemoglobin and Hematocriton 06-18-2020 Hematocrit (Bld) [Volume fraction] 24.7 % Low 34.0-46.4 [facility] Comment on above: Result Comment: PERF ORMED BY: [place] [address] PATHOLOGIST HAZARDOUS W[employer]OVER [employer]ECKA PHELAN M.D. Performed By: #### P TT, PT, RETIC #### [address] Hemoglobin (Bld) [Mass/Vol] 6.6 g/dL Low 11.8-15.4 [facility] Comment on above: Performed By: #### P TT, PT, RETIC #### [address] Hepatic Panelon 06-18-2020 Albumin [Mass/Vol] 3.2 g/dL Normal 3.2-5.5 [facility] Comment on above: Performed By: #### F ER, PHOS, MG, HEPATIC, [id number], TSH3, SCAN CBC, BMP, FE and TIBC #### [address] Albumin/Globulin [Mass ratio] 1.0 {ratio} Normal [facility] Comment on above: Performed By: #### F ER, PHOS, MG, HEPATIC, [id number], TSH3, SCAN CBC, BMP, FE and TIBC #### [address] ALP [Catalytic activity/Vol] 156 U/L High 32-92 [facility] Comment on above: Performed By: #### F ER, PHOS, MG, HEPATIC, [id number], TSH3, SCAN CBC, BMP, FE and TIBC #### [address] [place] [address] [place] ALT [Catalytic activity/Vol] 13 U/L Normal 10-60 [facility] Comment on above: Performed By: #### F ER, PHOS, MG, HEPATIC, [id number], TSH3, SCAN CBC, BMP, FE and TIBC #### [facility] [address] [place] [id number] [facility] AST [Catalytic activity/Vol] 15 U/L Normal 10-42 [facility] Comment on above: Performed By: #### F ER, PHOS, MG, HEPATIC, [id number], TSH3, SCAN CBC, BMP, FE and TIBC #### [facility] [address] Bilirubin [Mass/Vol] 1.7 mg/dL High 0.3-1.2 [facility] Comment on above: Result Comment: Samp les from patients who have taken Naproxen have shown spurious elevation in Total Bilirubin levels. A metabolite of Naproxen, O-desmethylnaproxen, has been shown to interfere with the Jendrassik-Grof method for measuring Total Bilirubin. Performed By: #### F ER, PHOS, MG, HEPATIC, [id number], TSH3, SCAN CBC, BMP, FE and TIBC #### [facility] [address] Bilirubin,Indirect 1.4 mg/dL Normal [facility] Comment on above: Performed By: #### F ER, PHOS, MG, HEPATIC, [id number], TSH3, SCAN CBC, BMP, FE and TIBC #### [facility] [address] Bilirubin.indirect [Mass/Vol] 0.3 mg/dL Normal 0.0-0.4 [facility] Comment on above: Performed By: #### F ER, PHOS, MG, HEPATIC, [id number], TSH3, SCAN CBC, BMP, FE and TIBC #### [facility] [address] Globulin (S) [Mass/Vol] 3.3 g/dL Normal [facility] Comment on above: Performed By: #### F ER, PHOS, MG, HEPATIC, [id number], TSH3, SCAN CBC, BMP, FE and TIBC #### [facility] [address] [place] [address] Protein [Mass/Vol] 6.5 g/dL Normal 6.1-7.9 [facility] Comment on above: Performed By: #### F ER, PHOS, MG, HEPATIC, [id number], TSH3, SCAN CBC, BMP, FE and TIBC #### [facility] [address] [place] [address] Iron and TIBC Profileon % Iron Saturation 3.0 % Low 20-50 [facility] Comment on above: Performed By: #### P TT, PT, RETIC #### [address] Iron [Mass/Vol] 16 ug/dL Low 40-150 [facility] Comment on above: Performed By: #### P TT, PT, RETIC #### [facility] [address] [place] [address] Total Iron Binding Capacity 465 ug/dL High 255-450 [facility] Comment on above: Performed By: #### P TT, PT, RETIC #### [facility] [address] [place] [address] Transferrin [Mass/Vol] 332 mg/dL Normal 180-380 [facility] Comment on above: Performed By: #### P TT, PT, RETIC #### [address] Miguel Angel 06-18-2020 L - -------- Specimen: [id number] Received: 06/18/20 Status: CHERELLE Gamez Num: [id number] Spec Type: Impression Subm Dr: Francisca Bazzi MD Tissues: PATHPER Procedures: PATHREVIEW -------- Patient Age/Sex Location Account Attending Physician -------- Stew Mcdaniel 69/F 4P [id number] Lucien Major MD -------- SPEC NUM: [id number] RECD: 06/18/20 STATUS: CHERELLE TRINIDADLila NUM: [id number] GLADYS: 06/18/20- SUBM DR: Francisca Bazzi MD ENTERED: 06/18/20 [facility] DR: SPEC TYPE: Impression DEPT: AR ORDERED: PATHREVIEW ORDERED: PATHREVIEW Pathologist Review Severe microcytic hypochromic anemia with moderate anisopoikilocytosis. Frequent ovalocytes, microcytes, occasional target cells, teardrop cells, and polychromatic cells are present. Iron deficiency anemia and blood loss are possible causes. The presence of occasional microspherocytes is suggestive of an intravascular hemolytic process. Correlation with clinical findings is recommended. [id number] CBC Date Time Test Result Flag (u) Normal Range 06/18/20 1124 WBC 4.9 3.8-11.6 X10E3/uL RBC 4.00 3.60-5.00 x10E6/uL HGB 5.7 L 11.8-15.4 g/dL HCT 21.5 L 34.0-46.4 % MCV 53.7 L 80-100 fl MCH 14.3 L 24.7-34.3 pg MCHC 26.6 L 32.0-35.0 g/dL RDW 26.0 H 11.9-15.3 % Plt 361 150-450 x10E3/uL MPV 8.2 6.3-10.7 fl Neut % (Auto) 66.8 . % Lymp % (Auto) 18.5 . % Dyer % (Auto) 9.9 . % Eos % (Auto) 2.4 . % Baso % (Auto) 2.4 . % -------- Specimen: [id number] Received: 06/18/20 Status: KERWINOlga Gamez Num: [id number] Spec Type: Impression Subm Dr: Francisca Bazzi MD Tissues: PATHPER Procedures: PATHREVIEW -------- Patient: McdanielPlacidoStew Cheyenne [id number] (Continued) -------- Specimen: Received: 06/18/20 (Continued) CBC (Continued) Signed (signature on file) Becka Phelan MD 06/20/20 1617 -------- Specimen: Received: 06/18/20 Status: CHERELLE Gamez Num: [id number] Spec Type: Impression Subm Dr: Francisca Bazzi MD Tissues: PATHPER Procedures: PATHREVIEW -------- Patient: Stew Mcdaniel [id number] (Continued) -------- Specimen: Received: 06/18/20 (Continued) CBC (Continued) NRBC% 0.1 0-0.5 % Neut # (Auto) 3.3 1.8-7.7 x10E3/uL Lymph # (Auto) 0.9 L 1.00-4.8 x10E3/uL Dyer # (Auto) 0.5 0.0-0.8 x10E3/uL Eos # (Auto) 0.1 0.0-0.45 x10E3/uL Baso# (Auto) 0.1 0.0-0.2 x10E3/uL Polychrom Slight Hypochrom Marked Aniso Marked Micro Marked Tear Drop Slight Oval Slight Plt Est Normal Normal Plt Morphology Normal Normal Add Comments Slide referred to pathologist for review -------- -------- Specimen: [id number] Received: 06/18/20 Status: CHERELLE Gamez Num: [id number] Spec Type: Impression Subm Dr: Francisca Bazzi MD Tissues: PATHPER Procedures: PATHREVIEW -------- Patient: McdanielStew [id number] (Continued) -------- Signed (signature on file) Becka Phelan MD 06/20/20 1617 Normal [facility] LeukoReduced RBCon LeukoReduced RBC NOT AVAILABLE Normal [facility] Magnesiumon 06-18-2020 Magnesium [Mass/Vol] 2.1 mg/dL Normal 1.6-2.6 [facility] Comment on above: Performed By: #### P TT, PT, RETIC #### [facility] [address] [place] [address] Partial Thromboplastin Timeo n 06-18-2020 aPTT Coag (Bld) [Time] 27.2 s Normal 25.1-36.5 [facility] Comment on above: Result Comment: PERF ORMED BY: [place] [address] PATHOLOGIST HAZARDOUS WASTE REMOVER BECKA PHELAN M.D. Performed By: #### P TT, PT, RETIC #### [facility] [address] [place] [address] Phosphoruson 06-18-2020 Phosphate [Mass/Vol] 3.3 mg/dL Normal 2.5-4.6 [facility] Comment on above: Performed By: #### F ER, PHOS, MG, HEPATIC, [id number], TSH3, SCAN CBC, BMP, FE and TIBC #### [facility] [address] [place] [address] [place] Prothrombin Time INRon 06-18 INR Coag (PPP) [Relative time] 1.3 {INR} Normal [facility] Comment on above: Result Comment: INR Therapeutic Range A) Pre- and Peroperative OAT started two weeks before surgery. NOT HIP SURGERY: 1.5 - 2.5 HIP SURGERY: 2 - 3 B) Primary and secondary prevention of venous THROMBOSIS: 2 - 3 C) Active venous thrombosis, pulmonary embolism and prevention of recurrent venous thrombosis: 2 - 3 D) Prevention of arterial thromboembolism including patients with mechanical heart valves: 3 - 4.5 Performed By: #### P TT, PT, RETIC #### [facility] [address] PT Coag (PPP) [Time] 14.7 s High 9.0-12.9 [facility] Comment on above: Performed By: #### P TT, PT, RETIC #### [facility] [address] Reticulocyte Counton 021 Reticulocyte Number 0.100 10*6/uL High 0.024-0.084 [facility] Comment on above: Result Comment: PERF ORMED BY: [place] [address] PATHOLOGIST HAZARDOUS [employer]OVER BECKA PHELAN M.D. Performed By: #### P TT, PT, RETIC #### [address] Reticulocyte Percent 2.5 % High 0.5-1.5 [facility] Comment on above: Performed By: #### P TT, PT, RETIC #### [address] Scan and CBCon 06-18-2020 Additional Comments Normal [facility] Comment on above: Result Comment: Slid e referred to pathologist for review PERFORMED BY: [place] [address] PATHOLOGIST HAZARDOUS WASTE [employer]OVER BECKA PHELAN M.D. Performed By: #### P TT, PT, RETIC #### [facility] [address] [place] [address] Anisocytosis Ql (Bld) Marked Normal [facility] Comment on above: Performed By: #### P TT, PT, RETIC #### [place] [address] [place] Basophils (Bld) [#/Vol] 0.1 10*3/uL Normal 0.0-0.2 [facility] Comment on above: Performed By: #### P TT, PT, RETIC #### [address] Basophils/100 WBC (Bld) 2.4 % Normal . [facility] Comment on above: Performed By: #### P TT, PT, RETIC #### [address] Eosinophils (Bld) [#/Vol] 0.1 10*3/uL Normal 0.0-0.45 [facility] Comment on above: Performed By: #### P TT, PT, RETIC #### [address] Eosinophils/100 WBC (Bld) 2.4 % Normal . [facility] Comment on above: Performed By: #### P TT, PT, RETIC #### [address] Erythrocyte distribution width (RBC) [Ratio] 26.0 % High 11.9-15.3 [facility] Comment on above: Performed By: #### P TT, PT, RETIC #### [address] Hematocrit (Bld) [Volume fraction] 21.5 % Low 34.0-46.4 [facility] Comment on above: Performed By: #### P TT, PT, RETIC #### [address] Hemoglobin (Bld) [Mass/Vol] 5.7 g/dL Low 11.8-15.4 [facility] Comment on above: Performed By: #### P TT, PT, RETIC #### [address] Hypochromasia Marked Normal [facility] Comment on above: Performed By: #### P TT, PT, RETIC #### [address] Lymphocytes (Bld) [#/Vol] 0.9 10*3/uL Low 1.00-4.8 [facility] Comment on above: Performed By: #### P TT, PT, RETIC #### [address] Lymphocytes/100 WBC (Bld) 18.5 % Normal . [facility] Comment on above: Performed By: #### P TT, PT, RETIC #### [address] MCH (RBC) [Entitic mass] 14.3 pg Low 24.7-34.3 [facility] Comment on above: Performed By: #### P TT, PT, RETIC #### [address] MCV (RBC) [Entitic vol] 53.7 fL Low 80-100 [facility] Comment on above: Performed By: #### P TT, PT, RETIC #### [address] Mean Corpuscular HGB Conc 26.6 g/dL Low 32.0-35.0 [facility] Comment on above: Performed By: #### P TT, PT, RETIC #### [address] Microcytosis Marked Normal [facility] Comment on above: Performed By: #### P TT, PT, RETIC #### [address] Monocytes (Bld) [#/Vol] 0.5 10*3/uL Normal 0.0-0.8 [facility] Comment on above: Performed By: #### P TT, PT, RETIC #### [place] [address] [place] Monocytes/100 WBC (Bld) 9.9 % Normal . [facility] Comment on above: Performed By: #### P TT, PT, RETIC #### [address] Neutrophils (Bld) [#/Vol] 3.3 10*3/uL Normal 1.8-7.7 [facility] Comment on above: Performed By: #### P TT, PT, RETIC #### [address] Neutrophils/100 WBC (Bld) 66.8 % Normal . [facility] Comment on above: Performed By: #### P TT, PT, RETIC #### [address] Nucleated RBC/100 WBC (Bld) [Ratio] 0.1 % Normal 0-0.5 [facility] Comment on above: Performed By: #### P TT, PT, RETIC #### [address] Ovalocytes Slight Normal [facility] Comment on above: Performed By: #### P TT, PT, RETIC #### [address] Platelet Estimate Normal Normal Normal [facility] Comment on above: Performed By: #### P TT, PT, RETIC #### [address] Platelet mean volume (Bld) [Entitic vol] 8.2 fL Normal 6.3-10.7 [facility] Comment on above: Performed By: #### P TT, PT, RETIC #### [address] Platelet Morphology Normal Normal Normal [facility] Comment on above: Performed By: #### P TT, PT, RETIC #### [address] Platelets (Bld) [#/Vol] 361 10*3/uL Normal 150-450 [facility] Comment on above: Performed By: #### P TT, PT, RETIC #### [address] Polychromasia Slight Normal [facility] Comment on above: Performed By: #### P TT, PT, RETIC #### [address] RBC (Bld) [#/Vol] 4.00 10*6/uL Normal 3.60-5.00 [facility] Comment on above: Performed By: #### P TT, PT, RETIC #### [facility] [address] [place] [address] Tear Drop Cells Slight Normal [facility] Comment on above: Performed By: #### P TT, PT, RETIC #### [address] WBC (Bld) [#/Vol] 4.9 10*3/uL Normal 4.5-11.0 [facility] Comment on above: Performed By: #### P TT, PT, RETIC #### [address] Thyroid Stimulating Hormoneo n 06-18-2020 TSH Qn 2.33 m[IU]/L Normal 0.45-5.33 [facility] Comment on above: Result Comment: PERF ORMED BY: [place] [address] PATHOLOGIST HAZARDOUS WASTE REMOVER BECKA PHELAN M.D. Performed By: #### P TT, PT, RETIC #### [address] Type and Screenon 06-18-2020 ABO and Rh group Nom (Bld) Blood group A Rh(D) positive Normal [facility] Comment on above: Result Comment: PERF ORMED BY: [place] [address] PATHOLOGIST HAZARDOUS WASTE REMOVER BECKA PHELAN M.D. Vit. B12/Folate Profileon Cobalamin (Vitamin B12) [Mass/Vol] 349 pg/mL Normal 180-914 [facility] Comment on above: Performed By: #### P TT, PT, RETIC #### [address] Folate 9.3 ng/mL Normal >5.9 [facility] Comment on above: Result Comment: Chandni te reference range: >5.9 ng/ml The WHO technical consultation on folate and vitamin b12 deficiencies has determined that folate concentrations less than 4 ng/ml are considered deficient. Performed By: #### P TT, PT, RETIC #### [address] XR abdomen 1Von 06-18-2020 XR abdomen 1V [facility] Main [place] [id number] XRay Report Signed Patient: Stew Mcdaniel MR#: [id number] [birth year] : 1950 Acct:[id number] Age/Sex: 69 / F ADM Date: 06/18/20 Loc: 4P Room: [address] [place] [address] Type: ADM IN Attending Dr: Francisca Bazzi MD Ordering Provider: Luis Crandall MD Date of Service: 06/18/20 XR/XR abdomen 1V: ivc filter Copies to: MD Francisca Butts MD Abdomen 06/18/2020. CLINICAL DATA: Determine presence of IVC filter. FINDINGS: 2 supine views of the abdomen were obtained. There is an IVC filter. The bowel gas pattern is nonspecific and nonobstructive. The urinary bladder is opacified. The thoracolumbar spine demonstrates degenerative changes and curvature. XR/XR abdomen 1V IMPRESSION: IVC filter present. Impression dictated by: Chacorta Corbett Jr., M.D.06/18/2020 6:38 PM Dictation Location: [place] [address] Transcribed By: [facility] 06/18/201837 Dictated By: Chacorta Corbett Jr, MD 06/18/20 183 Signed By: 06/18/20 1838 Normal [facility] XR femur RT 2V*on 06-18-2020 XR femur RT 2V* [facility] Main [place] [id number] XRay Report Signed Patient: Stew Mcdaniel MR#: [id number] 40 : 1950 Acct:[id number] Age/Sex: 69 / F ADM Date: 06/18/20 Loc: 4P Room: [address] [place] [address] Type: ADM IN Attending Dr: Francisca Bazzi MD Ordering Provider: Francisca Bazzi MD Date of Service: 06/18/20 XR/XR hip RT min 2V(w/wo pelvis)*: Fall rt hip pain ([id number]) XR/XR femur RT 2V*: Pain knee and thigh after a fall Copies to: Francisca Bazzi MD Right hip and right femur 06/18/2020. CLINICAL DATA: Right hip and thigh pain. RIGHT HIP FINDINGS: 2 views of the right hip were obtained. Osteopenia is noted. No acute fracture or dislocation is identified. Mild degenerative changes are seen at the hip. RIGHT FEMUR FINDINGS: 2 views of the right femur were obtained. Osteopenia is noted. No acute fracture or dislocation is identified. There are advanced degenerative changes including a large marginal osteophytes at the knee. XR/XR hip RT min 2V(w/wo pelvis)* IMPRESSION: Osteopenia. Mild degenerative changes at the right hip and advanced degenerative changes at the right knee. No acute bony abnormality. Impression dictated by: Chacorta Corbett Jr., M.D.06/18/2020 2:46 PM Dictation Location: [place] [address] Transcribed By: [facility] 06/18/20 1446 Dictated By: Chacorta Corbett Jr, MD 06/18/20 1440 Signed By: 06/18/20 1446 [facility] Vital Signs Date Time Vital Sign Value Performing Clinician Facility 01-16-2024 14:040 Body height 162.6 cm Airbrite DO [facility] 01-16-2024 14:040 Body mass index (BMI) [Ratio] 42.4 kg/m2 [employer] DO [facility] 01-16-2024 14: Body temperature 98.1 [degF] Airbrite DO Work Phone: [facility] [employer] 01-16-2024 14:040 Body weight 112.04 kg Airbrite DO [facility] [employer] 01-16-2024 14:-0400 Diastolic blood pressure 70 mm[Hg] Gideon Rivero DO [facility] 01-16-2024 14:26-0400 Heart rate 81 /min Gideon Rivero DO Work Phone: [facility] [employer] 01-16-2024 14:26-040 Respiratory rate 18 /min Gideon Rivero DO Work Phone: [facility] [employer] 01-16-2024 14:26-0400 SaO2% (BldA) [Mass fraction] 98 % Gideon Rivero DO Work Phone: [facility] [employer] 01-16-2024 14:26-040 Systolic blood pressure 140 mm[Hg] Gideon Rivero DO Work Phone: [facility] [employer] 01-15-2024 14:15-0400 Body height 154.9 cm Oscar Cedeno [employer] Phone: [facility] [email or web address] 01-15-2024 14:15-0400 Body mass index (BMI) [Ratio] 51.96 kg/m2 Oscar Emida Phone: [facility] [email or web address] 01-15-2024 14:15-0400 Body weight 124.74 kg Oscarphillip Cedeno [employer] Phone: [facility] Healthcare Encounters Encounter Date Encounter Type Care Provider Facility Start: 01-23-2024 End: 01-27-2024 Telephone encounter Gideon Rivero DO Work Phone: [facility] Internal [facility] - Family Medicine Start: 01-20-2024 End: 01-20-2024 Orders Only Gideon Rivero DO Work Phone: [facility] Start: 01-16-2024 End: 01-16-2024 Transitional care manage srvc 7 day discharge Gideon Rivero DO Work Phone: [facility] - [facility] Comment on above: Gastrointestinal hem orrhage, unspecified gastrointestinal hemorrhage type (Primary Dx); Type 2 diabetes mellitus without complication, without long-term current use of insulin ([facility]); Anemia, unspecified type; Pedal edema; Malignant neoplasm of colon ([facility]); Obesity, morbid ([facility]); Encounter for screening mammogram for malignant neoplasm of breast; Diastolic dysfunction Start: 01-16-2024 End: 01-16-2024 ambulatory [facility] Start: 01-15-2024 End: 01-15-2024 Bamboo flowsheet Oscar Wilian DO Work Phone: [facility] Start: 01-15-2024 End: 01-15-2024 Bamboo flowsheet Oscar Cedeno DO Work Phone: [facility] Start: 01-15-2024 End: 01-15-2024 Office outpatient new 45 minutes Oscar Wilian DO Work Phone: [facility] Comment on above: Occult blood in stoo ls (Primary Dx) Start: 01-15-2024 End: 01-15-2024 ambulatory OSCAR CEDENO Not Available Start: 01-13-2024 End: 01-13-2024 ambulatory [facility] P[facility] Start: 01-13-2024 End: 01-13-2024 External Result Encounter Shaikh Patt VILLASENOR Work Phone: [facility] External Department Unsolicited Start: 01-13-2024 End: 01-13-2024 External Result Encounter Shaikh Patt VILL[employer] Work Phone: [facility] External Department Unsolicited Start: 09-23-2023 End: 09-24-2023 Emergency department patient visit THERESA Trinh DIETER [facility] Start: 09-23-2023 End: 09-23-2023 Emergency department patient visit [facility] Procedures Date Procedure Procedure Detail Performing Clinician Start: 01-16-2024 Adult depression screening assessment [facility] Work Phone: Start: 01-13-2024 Complete blood count with white cell differential, automated Shaikh Patt VILLASENOR Work Phone: Start: 06-18-2020 Antibody screen Comment on above: Result Comment: PERF ORMED BY: [facility] [place] [address] PATHOLOGIST HAZARDOUS WASTE REMOVER BECKA PHELAN M.D. Plan of Treatment Date Care Activity Detail Author Start: 03-09-2026 DTaP,Tdap and Td Vaccines (3 - Td or Tdap) DTaP,Tdap and Td Vaccines (3 - Td or Tdap) [facility] Start: 01-15-2025 Adult BMI Screening Adult BMI Screen ing [facility] Start: 01-15-2025 Depression Screening Depression Scre ening [facility] Start: 01-15-2025 Diabetic foot examination Diabetic Foot Exam [facility] Start: 01-15-2025 Fall Risk Screening Fall Risk Screen ing [facility] Start: 01-15-2025 Tobacco Screening Tobacco Screening [facility] Start: 04-20-2024 End: 04-20-2024 Patient encounter procedure 04/20/2024 11:00 AM EST Office Visit [facility] Internal Medicine - Family Medicine [address] [place] [id number] Gideon Rivero, [address], [facility] [place] [address] [facility] Start: 01-16-2024 End: 01-15-2025 DBT Breast - bilateral screening Mammography screening bilateral with CAD Imaging Routine Encounter for screening mammogram for malignant neoplasm of breast Expected: 01/16/2024, Expires: 01/15/2025 [facility] Work Phone: Comment on above: Expected: 01/16/2024 , Expires: 01/15/2025 Start: 01-15-2024 End: 01-15-2024 Patient encounter procedure [facility] Comment on above: Arrived Start: 11-17-2023 COVID-19 Vaccine () COVID-19 Vaccine () [employer] Start: 11-17-2023 Influenza vaccination N [facility] Start: 02-15-2014 Administration of varicella zoster vaccine Zoster (Shingles) Vaccine (1 of 2) [facility] Start: 12-24-1995 Screening for malign ant neoplasm of colon Colonoscopy [facility] [employer] [facility] Start: 1990 Screening for malign ant neoplasm of breast Mammogram [facility] Start: 1968 Adult BMI Follow Up Plan Adult BMI Follow Up Plan [facility] [employer] [facility] Start: 1950 Glaucoma screening Diabetic Op hthalmology Exam [facility] [employer] [facility] Start: 1950 Medicare Annual Well ness Visit Medicare Annual Wellness Visit [facility] Start: 1950 Screening for malign ant neoplasm of colon [facility] Start: 1950 Statin Use: Diabetic Statin Use: Claudia betic [facility] End: 01-15-2025 CBC panel - Blood by Automated count CBC Lab Routine Anemia, unspecified type 1 Occurrences starting 01/16/2024 until 01/15/2025 [facility] Comment on above: 1 Occurrences starti ng 01/16/2024 until 01/15/2025 End: 01-15-2025 Comprehensive metabolic 2000 panel - Serum or Plasma Comprehensive metabolic panel Lab Routine Type 2 diabetes mellitus without complication, without long-term current use of insulin ([facility]) 1 Occurrences starting 01/16/2024 until 01/15/2025 [facility] Comment on above: 1 Occurrences starti ng 01/16/2024 until 01/15/2025 End: 01-15-2025 Hemoglobin A1c/Hemoglobin.total in Blood Hemoglobin A1c Lab Routine Type 2 diabetes mellitus without complication, without long-term current use of insulin ([facility]) 1 Occurrences starting 01/16/2024 until 01/15/2025 [employer] Comment on above: 1 Occurrences starti ng 01/16/2024 until 01/15/2025 End: 01-15-2025 Lipid panel Lipid panel Lab Routine Type 2 diabetes mellitus without complication, without long-term current use of insulin ([facility]) 1 Occurrences starting 01/16/2024 until 01/15/2025 [facility] Comment on above: 1 Occurrences starti ng 01/16/2024 until 01/15/2025 Immunizations Immunization Date Immunization Notes Care Provider [facility] 01-19-2020 influenza, high dose seasonal, preservative-free Gideon Furlong DO Work Phone: [facility] 01-19-2020 influenza virus vacc ine, unspecified formulation Shaikh Patt VILLASENOR Work Phone: [facility] 01-08-2019 Seasonal trivalent influenza vaccine, adjuvanted, preservative free Gideon Furlong DO Work Phone: [facility] 01-04-2018 influenza, high dose seasonal, preservative-free Gideon Furlong DO Work Phone: [facility] 08-30-2017 pneumococcal polysaccharide vaccine, 23 valent Gideon Furlong DO Work Phone: [facility] 11-24-2016 influenza, high dose seasonal, preservative-free Gideon Furlong DO Work Phone: [facility] 08-21-2016 pneumococcal conjuga te vaccine, 13 valent Gideon Furlong DO Work Phone: [facility] 04-23-2016 pneumococcal conjuga te vaccine, 13 valent Gideon Furlong DO Work Phone: [facility] 03-09-2016 tetanus toxoid, redu berny diphtheria toxoid, and acellular pertussis vaccine, adsorbed Gideon Furlong DO Work Phone: [facility] 12-17-2015 influenza virus vacc ine, unspecified formulation Gideon Furlong DO Work Phone: [facility] 03-12-2015 influenza, seasonal, injectable Gideon Furlong DO Work Phone: [facility] 09-30-2014 tetanus toxoid, redu berny diphtheria toxoid, and acellular pertussis vaccine, adsorbed Gideon Furlong DO Work Phone: [facility] 12-21-2013 zoster vaccine, live Gideon Furlong DO Work Phone: [facility] 12-21-2013 zoster vaccine, unspecified formulation Gideon Rivero DO Work Phone: [facility] 11-23-2008 pneumococcal polysaccharide vaccine, 23 valent Gideon Rivero DO Work Phone: [facility] Payers Date Payer Category Payer Medicare [id number] 2013 Medicare [id number] 1950 Unknown [id number] 1950 Unknown [id number] 2.16.8 [id number] 1950 Unknown [id number] 2.16.8 [id number] 1950 Unknown [id number] 2.16.8 [id number] 1950 Unknown [id number] [id number] 1950 Unknown [id number] 2.16.8 [id number] Social History Date Type Detail Facility Tobacco smoking stat [facility] Tobacco smoking consumption unknown [facility] Start: 1950 Sex assigned at Not on file [facility] Start: 04-28-2020 End: 01-16-2024 Gender identity Not on file [facility] Start: 06-18-2020 Tobacco smoking stat [facility] Never smoked tobacco [facility] Start: 06-18-2020 Tobacco use and exposure Smokeless tobacco non-user [facility] Start: 01-16-2024 Alcoholic beverage intake Ex-drinker (finding) [facility] Start: 04-28-2020 End: 10-31-2024 History of Social function [facility] Adolescent depressio n screening assessment 7 [facility] Start: 10-21-2014 Sex Female (finding) [facility] Clinical Notes 01-15-2024 to 01-23-2024 Telephone Encounter - Anastacia Thompson - 01/23/2024 9:10 AM ESTTelephone Encounter - Gideon Rivero DO - 01/23/2024 9:10 AM ESTTelephone Encounter - Anastacia Thompson - 01/23/2024 9:10 AM EST Note Date & Type Note Facility 01-23-2024 Miscellaneous Notes Patient memory care program director called, she got the patient on a rx plan but it does not take affect until March 18, would we be able to provider her with 5 more boxes to last her until then of the farxiga 10mg How about a couple more and they can come back in a few weeks to get more. 5 boxes would clean us out Talked to jessica she said that's fine, how many weeks do you want to give her to start? Also she wanted me to tell you that her pitting is getting a lot better, she is losing a lot of the fluid that was there, she can feel her rodriguez when rubbing them She can have 3 boxes this time Ready and notified documented in this encounter [facility] 01-23-2024 Telephone encounter Note Patient memory care program director called, she got the patient on a rx plan but it does not take affect until March 18, would we be able to provider her with 5 more boxes to last her until then of the farxiga 10mg [facility] 01-23-2024 Telephone encounter Note How about a couple more and they can come back in a few weeks to get more. 5 boxes would clean us out [facility] 01-23-2024 Telephone encounter Note Talked to jessica she said that's fine, how many weeks do you want to give her to start? Also she wanted me to tell you that her pitting is getting a lot better, she is losing a lot of the fluid that was there, she can feel her rodriguez when rubbing them [facility] 01-23-2024 Telephone encounter Note She can have 3 boxes this time [facility] 01-23-2024 Telephone encounter Note Ready and notified [facility] 01-16-2024 History of Presen t illness Narrative Subjective Patient ID: Stew Mcdaniel is a 73 y.o. female. The patient is here today for discharge follow up from hospital. Transition of Care Med Rec completed? Yes Discharged medications: Medications have been reviewed and reconciled with the most recent facility discharge document. Stew presents for a hospital follow up. She went to the hospital for shortness of breath and leg swelling. Caregiver was concerned about heart failure. She did have an echocardiogram and she had a normal EF but did have diastolic dysfunction but exact dysfunction not elucidated on records that I have. She was found to be anemic and likely has a GI bleed. She is scheduled for EGD and colonoscopy on 01/27. She is SOB with exertion. She is getting home health but wondering about help with ADLs when caregiver is not there. She has not seen a doctor in over 2 years and stopped all of her medications. She was started on iron supplement, stool softener and omeprazole in the hospital. She has no new concerns. The following portions of the patient's history were reviewed and updated as appropriate: allergies, current medications, past family history, past medical history, past social history, past surgical history, problem list, and medication reconciliation was completed including current medication and post discharge medication. Review of Systems Constitutional: Negative. HENT: Negative. Eyes: Negative. Respiratory: Positive for shortness of breath. Cardiovascular: Positive for leg swelling. Gastrointestinal: Negative. Endocrine: Negative. Genitourinary: Negative. Musculoskeletal: Negative. Skin: Negative. Hematological: Negative. Psychiatric/Behavioral: Negative. Objective Physical Exam Vitals reviewed. Exam conducted with a it security consultant present (caregiver and Michael Weber MS III). Constitutional: General: She is not in acute distress. Appearance: She is morbidly obese. She is not ill-appearing. HENT: Head: Normocephalic. Right Ear: External ear normal. Left Ear: External ear normal. Eyes: General: No scleral icterus. Extraocular Movements: Extraocular movements intact. Conjunctiva/sclera: Conjunctivae normal. Cardiovascular: Rate and Rhythm: Normal rate and regular rhythm. Pulses: Normal pulses. Heart sounds: Normal heart sounds. Pulmonary: Effort: Pulmonary effort is normal. No respiratory distress. Breath sounds: Normal breath sounds. No wheezing, rhonchi or rales. Abdominal: General: Bowel sounds are normal. There is no distension. Palpations: Abdomen is soft. There is no mass. Tenderness: There is no abdominal tenderness. Hernia: No hernia is present. Musculoskeletal: Cervical back: Neck supple. Right lower le+ Pitting Edema present. Left lower le+ Pitting Edema present. Feet: Right foot: Protective Sensation: 10 sites tested. 10 sites sensed. Skin integrity: Skin integrity normal. Toenail Condition: Right toenails are abnormally thick. Fungal disease present. Left foot: Protective Sensation: 10 sites tested. 10 sites sensed. Skin integrity: Skin integrity normal. Toenail Condition: Left toenails are abnormally thick. Fungal disease present. Skin: General: Skin is warm. Findings: Rash (brown discoloration on both lower legs) present. Neurological: General: No focal deficit present. Mental Status: She is alert and oriented to person, place, and time. Psychiatric: Attention and Perception: Attention normal. Mood and Affect: Mood and affect normal. Speech: Speech normal. Behavior: Behavior normal. Behavior is cooperative. Comments: Limited speech, answers Assessment/Plan Stew was seen today for gi bleeding anemia. Diagnoses and all orders for this visit: Gastrointestinal hemorrhage, unspecified gastrointestinal hemorrhage type Hospital records reviewed. F/U with surgeon for endoscopies. Stay on omeprazole. Type 2 diabetes mellitus without complication, without long-term current use of insulin ([facility]) - Compression stockings - Diabetic foot exam performed - atorvastatin (LIPITOR) 10 mg tablet; Take 1 tablet (10 mg total) by mouth in the morning. - Hemoglobin A1c; Future - Comprehensive metabolic panel; Future - Lipid panel; Future Check A1c, CMP and lipids. A1c was 7.15 in hospital. Restart jardiance 10 mg QD. Can help edema too Anemia, unspecified type - CBC; Future Recheck CBC Pedal edema - Compression stockings Rx. Compression hose Malignant neoplasm of colon ([facility]) Will be getting another colonoscopy Obesity, morbid ([facility]) She is morbidly obese. It is contributing to diabetes, HTN and high cholesterol. She cannot do much exercise. Encounter for screening mammogram for malignant neoplasm of breast - Mammography screening bilateral with CAD; Future Check mammogram to screen for breast cancer. She would pursue further evaluation and treatment. Diastolic dysfunction Will try to get echo report. Start jardiance. Other orders - empagliflozin (JARDIANCE) 10 mg tablet tablet; Take 1 tablet (10 mg total) by mouth daily. Will hold off on BP meds while anemic and may drop BP. documented in this encounter [employer] [facility] [employer] 01-15-2024 History of Presen t illness Narrative General Surgery H&P Stew Cheyenne Violeta 1950 Stew Mcdaniel is a 73 y.o. female presents for GI Bleeding (Pt presents today for a possible GI Bleed. Department Store Door Greeter states that this has been going on for a long time. She does have black stools and blood in her stools as well. ) Denies abdominal pain. Denies family hx of colon cancer that she knows of. Pt does have a Hx of breast cancer. Denies any recent hematochezia but family day care provider does state she may have had some darker stools in the past but not recently. Denies hx of unplanned weight loss. Denies fevers, chills, or sweats. Denies nausea or vomiting. Last colonoscopy was never. POA there and would like to proceed with EGD and C-scope, risks and alternatives of the procedure discussed. SUBJECTIVE: MEDICATIONS: ALLERGIES Current Outpatient Medications Medication Instructions bisacodyl (DULCOLAX) 5 mg, Oral, Once, Do not crush, chew, or split. Take as detailed on clinic hand out for colonoscopy prep docusate sodium (COLACE) 100 mg, Oral, 3 times weekly ferrous sulfate 325 mg, Daily with breakfast lisinopril 10 mg, Daily omeprazole (PRILOSEC) 20 mg, Daily RT polyethylene glycol (PEG) 3350 (GLYCOLAX) 238 g, Oral, Once, Take as detailed from clinic hand out for colonoscopy prep No Known Allergies PAST MEDICAL HISTORY: SOCIAL HISTORY SURGICAL HISTORY: History reviewed. No pertinent past medical history. Past Surgical History: Procedure Laterality Date CT ANGIOGRAM ABDOMEN PELVIS 06/18/2020 CT ANGIOGRAM ABDOMEN PELVIS 06/18/2020 No family history on file. No Known Allergies Past Surgical History: Procedure Laterality Date CT ANGIOGRAM ABDOMEN PELVIS 06/18/2020 CT ANGIOGRAM ABDOMEN PELVIS 06/18/2020 Tobacco Use: Low Risk (09/23/2023) Received from [facility] [employer] Patient History Smoking Tobacco Use: Never Smokeless Tobacco Use: Never Passive Exposure: Not on file Alcohol Use: Not on file Depression: Not on file Physical Activity: Not on file REVIEW OF SYMPTOMS: Review of Systems All other systems reviewed and are negative. 10 systems were reviewed. Positives noted above. Remainder are negative per CMS guidelines. OBJECTIVE: Visit Vitals Ht 5' 1 Wt 275 lb BMI 51.96 kg/m BSA 2.32 m Physical Exam Vitals reviewed. General: AAOx3, NAD Head: atraumatic normocephalic Neck: trachea midline. No masses or lymphadenopathy Heart: Regular rate and rhythm Lungs: equal chest rise and fall, non labored breathing Abdomen: soft, nontender, and non distended Ext: motor 5/5 all extremities with no gross deformities Psych: alert and oriented, behavior appropriate ASSESSMENT AND PLAN: Assessment/Plan Diagnoses and all orders for this visit: Occult blood in stools - bisacodyl (Dulcolax) 5 MG EC tablet; Take 1 tablet (5 mg) by mouth 1 time for 1 dose Do not crush, chew, or split. Take as detailed on clinic hand out for colonoscopy prep - polyethylene glycol, PEG, 3350 (Glycolax) 17 GM/SCOOP powder; Take 238 g by mouth 1 (one) time for 1 dose Take as detailed from clinic hand out for colonoscopy prep Plan: POA is the medical decision maker at this time, signed consent. Patient is increased risk for colon cancer. Diagnostic colonoscopy and EGD can be scheduled electively. Patient informed of the risks of procedure which include but not limited to bleeding, perforation, and risks of anesthesia. Patient understood risks and signed informed consent for the procedure under monitored anesthesia care. Handout for bowel prep provided in clinic. Patient was informed of the need for a ride home from the hospital and the need for someone to be with them for the following 24 hrs post procedure. Thank you, Lukasz Cedeno DO documented in this encounter [facility] Healthcare Evaluation note Diagnosis Occult blood in stools- Primary Nonspecific abnormal finding in stool contents documented in this encounter [facility] HealthcareEvaluation note* Diagnosis Gastrointestinal hemorrhage, unspecified gastrointestinal hemorrhage type- Primary Type 2 diabetes mellitus without complication, without long-term current use of insulin ([facility]) Anemia, unspecified type Pedal edema Edema Malignant neoplasm of colon ([facility]) Obesity, morbid ([facility]) Morbid obesity Encounter for screening mammogram for malignant neoplasm of breast Diastolic dysfunction Unspecified heart disease documented [facility] this [facility] on filedocumented in [facility] encounter [facility] [place] [facility]Not on filedocumented in this encounter [facility] [place] [facility] Summary Purpose Family History No Family History Records FoundNo Family History Records FoundNo Family History Records FoundNo Family History Records FoundNo Family History Records Found Advance Directives Documents on File Type Date Recorded Patient Seo Analyst Esme culver Living Will 01/16/2024 2:17 PM POA Paper work 01/16/24 Additional Source Comments INFORMATION SOURCE (unrecogn ized section and content) DATE CREATED AUTHOR 03/27/2021 [facility] DATE CREATED AUTHOR AUTHOR'S ORGANIZ ATION 06/14/2021 [facility] DATE CREATED AUTHOR AUTHOR'S ORGANIZ ATION 01/14/2024 [facility] DATE CREATED AUTHOR AUTHOR'S ORGANIZ ATION 01/17/2024 [facility] EPIC DATE CREATED AUTHOR AUTHOR'S ORGANIZ ATION 01/18/2024 [facility] Care Teams (unrecognized sec tion and content) Oil And Gas Exploration Technician Relationship Specialty Start Date End Date Gideon Rivero MD [address] [place] [address] PCP - General Family Medicine 01/15/24 Oil And Gas Exploration Technician Relationship Specialty Start Date End Date Gideon Rivero MD [address] [place] [address] PCP - General Family Medicine 01/15/24 Oil And Gas Exploration Technician Relationship Specialty Start Date End Date Gideon Rivero DO [address] [place] [address] PCP - General Family Medicine 02/01/22 Oil And Gas Exploration Technician Relationship Specialty Start Date End Date Gideon Rivero DO [address] [place] [address] PCP - General Family Medicine 02/01/22 Oil And Gas Exploration Technician Relationship Specialty Start Date End Date Gideon Rivero DO [address] [place] [address] PCP - General Family Medicine 02/01/22 Reason for Visit (unrecogniz ed section and content) Reason Comments GI Bleeding Pt presents today fo r a possible GI Bleed. Department Store Door Greeter states that this has been going on for a long time. She does have black stools and blood in her stools as well. Reason Comments GI bleeding anemia FOR RECORDS PERTAINING TO PATIENTS WHO ARE OR HAVE BEEN ENROLLED IN A CHEMICAL DEPENDENCY/SUBSTANCEABUSE PROGRAM, SOME INFORMATION MAY BE OMITTED. This clinical summary was aggregated from multiple sources. Caution should be exercised in using it in the provision of clinical care. This summary normalizes information from multiple sources, and as a consequence, information in this document may materially change the coding, format and clinical context of patient data. In addition, data may be omitted in some cases. CLINICAL DECISIONS SHOULD BE BASED ON THE PRIMARY CLINICAL RECORDS. [facility]. provides no warranty or guarantee of the accuracy or completeness of information in this document.
[2024-01-28 10:04] LABS: Glucometer 129 mg/dL (74-106)
--- NOTE | 2024-01-28 10:36 | W.PM.PROCNOT ---
Date of procedure: 01/28/24 Pre-op diagnosis: diagnostic EGD and colonoscopy Post-op diagnosis: other (large hiatal hernia, polypectomy x4, pandiverticulosis ) Procedure: EGD Preoperative Diagnosis:? GERD, GI bleeding Post-operative Diagnosis: hiatal hernia Procedure: Esophagogastroduodenoscopy with biopsy PROCEDURE: The patient was taken to the endoscopy suite and under monitored conditions was given adequate anesthesia until the patient was sedated.? The endoscope was passed easily into the oropharynx and into the upper esophagus.? The esophagus was normal however the z-line was elevated at 27cm while the GE junction was noted at approx 35cm.? The scope entered the stomach easily which distended well.? The scope was passed through the pylorus and the duodenal bulb and 1st portion of the duodenum were within normal limits.? No abnormalities identified.? The body of the stomach was carefully inspected and there were no abnormalities identified.??? The scope was retroflexed and there was evidence of a large hiatal hernia.? There was mild gastritis in the antrum of the stomach. Biopsies were taken in the antrum for H. Pylori testing.? The patient was then positioned for colonoscopy. Previous colonoscopy:never procedure: diagnostic colonoscopy with polypectomies The patient was given IV conscious sedation.? The patient's SPO2 remained above 90% throughout the procedure. The colonoscope was inserted per rectum and advanced under direct vision to the cecum with some difficulty due to bowel prep.? The prep was moderate.? Findings: Terminal ileum os: normal Cecum/Ascending colon: polyp at 110cm subcentimeter removed completely with cold snare forceps , mild diverticulosis Transverse colon: mild diverticulosis, 6mm transverse colon polyp at 90cm removed via cold snare forceps, 9mm transverse colon polyp removed via cold snare forceps at 70cm Descending/Sigmoid colon: mild diverticulosis Rectum/Anus: examined in normal and retroflexed positions- mild internal hemorrhoids, 1mm rectal polyp removed via cold snare forceps Withdrawal Time was (minutes): 25 The colon was decompressed and the scope was removed.? The patient tolerated the procedure well. Recommendations/Plan: 1.? Lifestyle and dietary modifications as discussed 2.? F/U Biopsies 3.? F/U 3 years for repeat colonoscopy or sooner pending pathology results 4.? Discussed with the family/POA Anesthesia: MAC Surgeon: Oscar Cedeno Estimated blood loss (mL): 5 Pathology: other (h pylori biopsy, polypectomy x4 ) Condition: stable Disposition: PACU
[2024-01-28 13:25] VITALS: BP 143/78; PULSE 80; O2SAT 96
[2024-01-28 13:40] VITALS: BP 167/85; PULSE 75; O2SAT 91
[2024-01-28 14:05] VITALS: BP 202/59; PULSE 69; O2SAT 91
== END 2024-01-28 14:05 | disposition home or self-care (01) ==
PROVIDERS: PCP Family Medicine; Visit Provider Surgery
PROC: (CPT 43239; principal; 2024-01-28 10:55)
DX: K92.2 Gastrointestinal hemorrhage, unspecified (principal); K44.9 Diaphragmatic hernia without obstruction or gangrene; K57.90 Diverticulosis of intestine, part unspecified, without perforation or abscess without bleeding; K57.30 Diverticulosis of large intestine without perforation or abscess without bleeding; K64.8 Other hemorrhoids; K29.50 Unspecified chronic gastritis without bleeding; D12.0 Benign neoplasm of cecum; D12.3 Benign neoplasm of transverse colon; D12.8 Benign neoplasm of rectum; Z85.3 Personal history of malignant neoplasm of breast; E11.9 Type 2 diabetes mellitus without complications; Z87.891 Personal history of nicotine dependence; I10 Essential (primary) hypertension; Z87.820 Personal history of traumatic brain injury; K27.9 Peptic ulcer, site unspecified, unspecified as acute or chronic, without hemorrhage or perforation
CPT/HCPCS: 43239; 45385; 36415; 82948; 88305; 88342; J2704

== ENCOUNTER 2024-04-09 15:26 | Emergency (ER) | payer MEDICARE, SELFPAY ==
[2024-04-09] VITALS (18 sets, daily range): BP systolic 160; BP diastolic 87; PULSE 70–94; TEMP 36.4; O2SAT 90–99; BMI 32.3
--- NOTE | 2024-04-09 15:40 | ECG_ITS ---
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
--- NOTE | 2024-04-09 15:43 | ED_ITS ---
HPI - URI/Sore Throat General Chief Complaint: Upper Respiratory Infection Stated Complaint: COUGH Time Seen by Provider: 04/09/24 15:38 History of Present Illness HPI Narrative: 73 year old female presents to the ED for cough. Onset was 8 days ago. Denies fever, chills, CP, SOB, dizziness, sore throat. Denies N/V/D, edema. She lives at home. States a visiting nurse comes daily and spends the night in her home. Related Data Home Medications ?Medication ?Instructions ?Recorded ?Confirmed dapagliflozin propanediol 5 mg 5 mg PO DAILY 01/22/24 01/22/24 tablet (Farxiga) lisinopril 10 mg tablet 10 mg PO DAILY 01/22/24 01/22/24 Previous Rx's ?Medication ?Instructions ?Recorded docusate sodium 100 mg capsule 100 mg PO DAILY #30 caps 01/09/24 (Colace) ferrous sulfate 324 mg (65 mg 324 mg PO DAILY #30 tabs 01/09/24 iron) tablet,delayed release omeprazole 40 mg capsule,delayed 40 mg PO BID #60 caps 01/09/24 release benzonatate 100 mg capsule 100 mg PO TID PRN cough #20 caps 04/09/24 prednisone 10 mg tablet See Rx Instructions .Route 04/09/24 .COMPLEX #30 tabs Allergies Allergy/AdvReac Type Severity Reaction Status Date / Time No Known Drug Allergies Allergy Verified 01/08/24 11:13 Review of Systems ROS Constitutional Reports: fatigue; Denies: fever or chills Ears, nose, mouth, and throat Denies: throat pain or neck pain Cardiovascular Denies: chest pain Respiratory Reports: cough; Denies: shortness of breath Gastrointestinal Denies: abdominal pain, nausea, vomiting or diarrhea Musculoskeletal Denies: back pain or neck pain Neurological Denies: headache or weakness in extremities [facility] Medical History (Updated 04/09/24 @ 18:11 by Maylin Ca) Upper gastrointestinal bleed ?K92.2 - Gastrointestinal hemorrhage, unspecified (ICD-10) Anemia due to acute blood loss ?D62 - Acute posthemorrhagic anemia (ICD-10) Anemia ?D64.9 - Anemia, unspecified (ICD-10) H/O traumatic brain injury ?Z87.820 - Personal history of traumatic brain injury (ICD-10) Breast cancer ?C50.919 - Malignant neoplasm of unspecified site of unspecified female breast (ICD-10) Arthritis ?M19.90 - Unspecified osteoarthritis, unspecified site (ICD-10) Urinary tract infection ?N39.0 - Urinary tract infection, site not specified (ICD-10) Extremity edema ?R60.0 - Localized edema (ICD-10) Hypertension ?I10 - Essential (primary) hypertension (ICD-10) Congestive heart failure ?I50.9 - Heart failure, unspecified (ICD-10) Diabetes ?E11.9 - Type 2 diabetes mellitus without complications (ICD-10) Surgical History (Updated 01/22/24 @ 11:04 by Paola Martines) H/O lumpectomy ?Z98.890 - Other specified postprocedural states (ICD-10) History of colonoscopy ?Z98.890 - Other specified postprocedural states (ICD-10) Family History (Updated 01/08/24 @ 14:45 by Donna Hernandez) Grandmother Family history of CHF (congestive heart failure) Family history of COPD (chronic obstructive pulmonary disease) Family history of cancer Family history of diabetes mellitus Family history of hypertension Family history of stroke Grandfather Family history of CHF (congestive heart failure) Family history of myocardial infarction Father Family history of cancer Social History (Updated 01/22/24 @ 11:06 by Paola Martines) Within the past year, how often did you have a drink containing alcohol: never Within the past year, how often did you have six or more drinks on one occasion: never Score interpretation: A score less than 3 is consistent with normal alcohol consumption. Smoking status: Former smoker Non-prescribed substance use: denies use Previous occupational history: RETIRED Known occupational exposures/hazards: No Highest level of school completed/degree received: high school graduate Are you now , , , , never or living with a partner: In a typical week, how many times do you talk on the telephone with family, friends, or neighbors: 3 or more times per week How often do you get together with friends or relatives: 3 or more times per week How often do you attend muslim or mandaeism services: 1-3 times per year Do you belong to any clubs or organizations such as muslim groups unions, [employer] or athletic groups, or school groups: no Total score: 1 Score interpretation: A score of less than or equal to 1 indicates the most socially isolated. Little interest or pleasure in doing things: several days Feeling down, depressed, or hopeless: several days Feel stressed/tense/nervous/anxious/difficulty sleeping: not at all Do you think of yourself as: straight/heterosexual Gender Identity: female Exam Constitutional Vital Signs, click to edit/add: Last Vital Signs Temp 97.6 F 04/09/24 15:35 Pulse 86 04/09/24 18:10 Resp 26 H 04/09/24 18:10 BP 160/87 H 04/09/24 15:37 Pulse Ox 93 L 04/09/24 18:10 Common normals: no apparent distress and oriented x3 General appearance: cooperative HENMT Nose: external nose normal External ear: external ears normal Mouth: oral and palatal mucosa normal, lip normal and tongue normal Throat: posterior oropharynx normal Eye Common normals: conjunctivae normal and no scleral icterus Neck & C-Spine Common normals: supple Chest Chest: symmetrical chest wall rise Respiratory Common normals: normal respiratory effort Effort & inspection: able to speak in complete sentences and symmetric chest movement Auscultation: diminished lung sounds Cardio Common normals: regular rate and regular rhythm Extremity General: no edema Neuro Common normals: moves all extremities Sensorium/orientation: awake and alert Speech: speech normal Course Vital Signs Vital signs: Vital Signs Temperature 97.6 F 04/09/24 15:35 Pulse Rate 94 H 04/09/24 15:35 Respiratory Rate 18 04/09/24 15:35 Blood Pressure 160/87 H 04/09/24 15:35 Pulse Oximetry 95 04/09/24 15:35 Temperature 97.6 F 04/09/24 15:35 Pulse Rate 86 04/09/24 18:10 Respiratory Rate 26 H 04/09/24 18:10 Blood Pressure 160/87 H 04/09/24 15:37 Pulse Oximetry 93 L 04/09/24 18:10 MDM - URI/Sore Throat MDM Narrative Medical decision making narrative: Covid-19 and influenza were negative. Chest x-ray was negative for acute findings. Creatinine was 1.21, BNP 87. Findings were discussed with the patient and her caregiver. Prescriptions were provided for prednisone and tessalon perles. Follow up with pcp for a recheck, further evaluation and treatment. Differential Diagnosis Differential diagnosis: Likely upper respiratory infection, viral infection, influenza and other (Covid-19, pneumonia, CHF exacerbation) Medical Records Attestation: I reviewed the patient's medical records. Lab Data Attestation: I reviewed the patient's lab results. Labs: Lab Results 04/09/24 04/09/24 04/09/24 Range/Units 15:50 15:55 16:56 WBC 8.2 (4.0-11.0) 10^3/uL RBC 5.90 H (4.20-5.40) 10^6/uL Hgb 15.3 (12.0-16.0) g/dL Hct 49.2 H (36.0-48.0) % MCV 83.4 (81.0-99.0) fL MCH 25.9 L (26.7-34.0) pg MCHC 31.1 (29.9-35.2) g/dL RDW 19.7 H (11.0-15.0) % Plt Count 287 (150-450) 10^3/uL MPV 9.9 (9.5-13.5) fL Neut % (Auto) 73.7 (43.0-75.0) % Lymph % (Auto) 17.4 L (20.5-60.0) % Anderson % (Auto) 6.1 (1.7-12.0) % Eos % (Auto) 1.1 (0.9-7.0) % Baso % (Auto) 1.1 (0.2-2.0) % Neut # (Auto) 6.1 (1.4-6.5) 10^3/uL Lymph # (Auto) 1.4 (1.2-3.8) 10^3/uL Anderson # (Auto) 0.5 (0.3-0.8) 10^3/uL Eos # (Auto) 0.1 (0.0-0.7) 10^3/uL Baso # (Auto) 0.1 (0.0-0.1) 10^3/uL Abs Immat Gran (auto) 0.05 H (0.00-0.03) 10^3/uL Imm/Tot Granulo (auto) 0.6 H (0.0-0.5) % Sodium 143 (136-145) mmol/L Potassium 3.8 (3.5-5.1) mmol/L Chloride 104 (98-107) mmol/L Carbon Dioxide 29.9 (21.0-32.0) mmol/L Anion Gap 12.9 BUN 12.0 (7.0-18.0) mg/dL Creatinine 1.21 H (0.55-1.02) mg/dL Est GFR ( Amer) 53 L (>=60 mL/min/1.73m^2) Est GFR (Non-Af Amer) 44 L (>=60 mL/min/1.73m^2) BUN/Creatinine Ratio 9.9 Glucose 213 H (74-106) mg/dL Calcium 9.7 (8.5-10.1) mg/dL NT-Pro-B Natriuret Pep 87.0 (<=900.0) pg/mL Influenza Type A Ag Negative Influenza Type B Ag Negative SARS-CoV-2 Ag (CV2AG) Negative (NEGATIVE) Imaging Data Chest x-ray: Attestation: I have reviewed the pertinent imaging results. Radiologist's impression: ITS Impressions Chest X-Ray 04/09/24 16:33 IMPRESSION: No acute pulmonary disease. Electronically authenticated by: RAMYA WALL Date: 04/09/2024 17:43 ECG Data Attestation: ?I have reviewed the pertinent ECG results. (EKG was reviewed by the attending physician. It showed sinus rhythm at a rate of 85; RBBB. No STEMI) Interpretation: Measurements Intervals [place] Rate: 85 P: 51 LA: 208 QRS: -83 QRSD: 134 T: 19 QT: 400 QTc: 442 Interpretive Statements 1100 Sinus rhythm 2450 Right bundle branch block 3114 Cannot rule out anterior myocardial infarction, age undetermined 3634 Inferior myocardial infarction, age undetermined 0102 ARTIFACT PRESENT 9150 abnormal ECG No previous ECG available for comparison Discharge Plan Discharge Chief Complaint: Upper Respiratory Infection Clinical Impression: Cough, Upper respiratory infection, viral Patient Disposition: Home, Self-Care Time of Disposition Decision: 18:11 Condition: Good Mode of Transportation: Private Vehicle Prescriptions / Home Meds: New benzonatate 100 mg capsule 100 mg PO TID PRN (Reason: cough) Qty: 20 0RF prednisone 10 mg tablet See Rx Instructions .ROUTE .COMPLEX Qty: 30 0RF Rx Instructions: Take 5 tablets on days 1-2, 4 tabs on days 3-4, 3 tabs on days 5-6, 2 tabs on days 7-8, 1 tab on days 9-10. No Action lisinopril 10 mg tablet 10 mg PO DAILY dapagliflozin propanediol [Farxiga] 5 mg tablet 5 mg PO DAILY omeprazole 40 mg capsule,delayed release(DR/EC) 40 mg PO BID Qty: 60 0RF ferrous sulfate 324 mg (65 mg iron) tablet,delayed release (DR/EC) 324 mg PO DAILY Qty: 30 0RF docusate sodium [Colace] 100 mg capsule 100 mg PO DAILY Qty: 30 0RF Print Language: [place] Citizen Instructions: Upper Respiratory Infection (ED) Additional Instructions: Return to the ER for worsening symptoms. Referrals: RAMYA ALEGRIA [Primary Care Provider] - 1 week
[2024-04-09 16:08] LABS: Basophils Absolute Auto 0.1 10^3/uL (0.0-0.1); Basophils Percent Auto 1.1 % (0.2-2.0); Eosinophils Absolute Auto 0.1 10^3/uL (0.0-0.7); Eosinophils Percent Auto 1.1 % (0.9-7.0); Hematocrit 49.2 % (36.0-48.0); Hemoglobin 15.3 g/dL (12.0-16.0); Immature Granulocytes Abs Auto 0.05 10^3/uL (0.00-0.03); Immature Granulocytes Pct Auto 0.6 % (0.0-0.5); Lymphocytes Absolute Auto 1.4 10^3/uL (1.2-3.8); Lymphocytes Percent Auto 17.4 % (20.5-60.0); Mean Corpuscular HGB Conc 31.1 g/dL (29.9-35.2); Mean Corpuscular Hemoglobin 25.9 pg (26.7-34.0); Mean Corpuscular Volume 83.4 fL (81.0-99.0); Mean Platelet Volume 9.9 fL (9.5-13.5); Monocytes Absolute Auto 0.5 10^3/uL (0.3-0.8); Monocytes Percent Auto 6.1 % (1.7-12.0); Neutrophils Absolute Auto 6.1 10^3/uL (1.4-6.5); Neutrophils Percent Auto 73.7 % (43.0-75.0); Platelet Count 287 10^3/uL (150-450); Red Cell Distribution Width 19.7 % (11.0-15.0); White Blood Count 8.2 10^3/uL (4.0-11.0)
[2024-04-09 16:18] LABS: Influenza Virus A Antigen Negative; Influenza Virus B Antigen Negative; Internal Control Within Normal Limits
--- NOTE | 2024-04-09 16:33 | XR_ITS ---
The [address] [address] Patient Name: DAVID GUZMÁN MRN: [id number] date: 1950 Sex: F Assigned Patient Location: ED.MAIN Current Patient Location: ER Accession/Order Number: [id number] Exam Date: 04/09/2024 16:25 Report Date: 04/09/2024 17:43 At the request of: MARIA ELENA TRACY Procedure: XR chest 1V EXAM: XR chest 1V TECHNIQUE: Single AP view chest HISTORY: SOB, cough COMPARISON: 01/08/2024 FINDINGS: Cardiac silhouette is normal. There is a moderate-sized hiatal hernia. Lung wade are clear. Arthritic changes of both shoulders. XR/XR chest 1V IMPRESSION: No acute pulmonary disease. Electronically authenticated by: RAMYA WALL Date: 04/09/2024 17:43
[2024-04-09 16:34] LABS: Anion Gap 12.9; BUN Creatinine Ratio 9.9; Calcium 9.7 mg/dL (8.5-10.1); Carbon Dioxide 29.9 mmol/L (21.0-32.0); Chloride 104 mmol/L (98-107); Estimated GFR (African America 53 (>=60 mL/min/1.73m^2); Estimated GFR (Non-African Ame 44 (>=60 mL/min/1.73m^2); Glucose 213 mg/dL (74-106); Potassium 3.8 mmol/L (3.5-5.1); Sodium 143 mmol/L (136-145)
[2024-04-09] MEDS: METHYLPREDNISOLONE SOD SUCC PF 125 MG/2 ML VIAL IVP (16:46)
[2024-04-09 17:18] LABS: Internal Control Within Normal Limits; SARS-CoV-2 Ag NEGATIVE (NEGATIVE)
[2024-04-09] MEDS: IPRATROPIUM/ALBUTEROL SULFATE 3 ML AMPUL.NEB IH (17:53)
== END 2024-04-09 18:49 | disposition home or self-care (01) ==
PROVIDERS: Nurse Practitioner Family; Emergency Provider Emergency Medicine; PCP Family Medicine
DX: J06.9 Acute upper respiratory infection, unspecified (principal); R05.9 Cough, unspecified; Z87.891 Personal history of nicotine dependence; R06.02 Shortness of breath
CPT/HCPCS: 36415; 71045; 80048; 83880; 85025; 87804; 87811; 93005; 94640; 96374; 99285; J2919